=== PATIENT | female | born 1950 | race Caucasian/White ===

== ENCOUNTER 2018-03-17 11:20 | Inpatient (IN) | payer BC, OTHER ==
--- NOTE | 2018-03-17 11:56 | PDOC ---
History of Present Illness - General Chief Complaint: Nausea/Vomiting Stated Complaint: VOMITING Time Seen by Provider: 03/17/18 11:56 History Source: Patient Exam Limitations: No Limitations - History of Present Illness Initial Comments: Pt is a 68 yo F, with PMH of HLD and gastritis, who is presenting with complaints of epigastric pain, nausea, and vomiting since last night. Pt states around 8 pm last night, she noticed pain in her epigastric area. Around 10 pm, pt ate a piece of cheese (pt is lactose intolerant) and started having NBNB vomiting. Her pain continued throughout the day. The pain is sharp, non- radiating, and is worse when lying flat. Pt also went to a democrat earlier in the day yesterday and was eating chips and other dairy products. Pt denies any fevers/chills, headache, vision changes, syncope, chest pain, palpitations, SOB , urinary symptoms, diarrhea/constipation, or leg swelling. Last endoscopy done 2 months ago, normal. Did show breath test +lactose -celiac. GI: Dr. Phillips in [place] PCP: Dr. Zan Lind Social: Pt denies any cigarette, alcohol, or drug use. Pt denies any recent travel or sick contacts. Surgical: no relevant history. Family: no relevant history. 03/17/18 12:44 Past History - Travel Traveled outside of the country in the last 30 days: No Close contact w/someone who was outside of country & ill: No - Past Medical History Allergies/Adverse Reactions: Allergies Allergy/AdvReac Type Severity Reaction Status Date / Time No Known Allergies Allergy Verified 03/17/18 11:26 Home Medications: Ambulatory Orders Aspirin [ASA -] 81 mg PO DAILY 08/29/14 Rosuvastatin Calcium [Crestor] 20 mg PO HS 08/29/14 Esomeprazole Magnesium [Nexium 24Hr] 20 mg PO DAILY 03/17/18 Cancer: Yes (breast cancer (implants 2012)) COPD: No GI Disorders: Yes (acid reflux) Hypercholesterolemia: Yes - Surgical History Cholecystectomy: Yes - Suicide/Smoking/Psychosocial Hx Smoking History: Never smoked Have you smoked in the past 12 months: No Number of Cigarettes Smoked Daily: 0 If you are a former smoker, when did you quit?: 15yrs ago Hx Alcohol Use: No Drug/Substance Use Hx: No Substance Use Type: None Review of Systems - Review of Systems Able to Perform ROS?: Yes Is the patient limited Persian proficient: No Constitutional: Yes: Weight Stable. No: Chills, Diaphoresis, Fever, Loss of Appetite HEENTM: No: Recent change in vision, Nose Congestion, Throat Pain, Throat Swelling Respiratory: No: Cough, Orthopnea, Shortness of Breath, Wheezing Cardiac (ROS): No: Chest Pain, Edema, Irregular Heart Rate, Palpitations, Syncope, Chest Tightness ABD/GI: Yes: Nausea, Vomiting, Indigestion, Abdominal cramping. No: Blood Streaked Bowels, Constipated, Diarrhea, Poor Appetite, Poor Fluid Intake, Rectal Bleeding : No: Burning, Dysuria, Frequency, Hematuria, Pain, Urgency Musculoskeletal: No: Back Pain, Joint Pain Integumentary: No: Rash Neurological: No: Headache, Weakness Psychiatric: No: Sleep Pattern Change, Change in Appetite Endocrine: No: Increased Urine, Change in Weight Hematologic/Lymphatic: No: Anemia, Blood Clots, Easy Bleeding, Easy Bruising All Other Systems: Reviewed and Negative *Physical Exam - Vital Signs Last Vital Signs Temp Pulse Resp BP Pulse Ox 98.2 F 87 18 136/85 99 03/17/18 11:24 03/17/18 11:24 03/17/18 11:24 03/17/18 11:24 03/17/18 11:24 - Physical Exam General Appearance: Yes: Nourished, Appropriately Dressed, Mild Distress (pt vomiting on exam), Obese HEENT: positive: EOMI, BRENNAN, Normal ENT Inspection, Normal Voice, Pharynx Normal , Hearing Grossly Normal. negative: Scleral Icterus (R), Scleral Icterus (L), Pharyngeal Erythema, Tonsillar Exudate, Tonsillar Erythema, Rhinorrhea Neck: positive: Trachea midline, Normal Thyroid, Supple. negative: Tender, Rigid, Lymphadenopathy (R), Lymphadenopathy (L), Rigidity Respiratory/Chest: positive: Lungs Clear, Normal Breath Sounds. negative: Chest Tender, Respiratory Distress, Accessory Muscle Use, Wheezing Cardiovascular: positive: Regular Rhythm, Regular Rate, S1, S2. negative: Edema , JVD, Murmur Vascular Pulses: Carotid (R): 4+, Carotid (L): 4+ Gastrointestinal/Abdominal: positive: Normal Bowel Sounds, Tender (epigastric tenderness), Flat, Soft. negative: Organomegaly, Pulsatile Mass, Distended, Guarding, Rebound Rectal Exam: positive: deferred Lymphatic: negative: Adenopathy, Tenderness Musculoskeletal: positive: Normal Inspection. negative: CVA Tenderness Extremity: positive: Normal Capillary Refill, Normal Inspection, Normal Range of Motion, Pelvis Stable. negative: Tender, Pedal Edema Integumentary: positive: Normal Color, Dry, Warm. 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 negative: EOM Palsy, Facial Droop , Numbness, Sensory Deficit Moderate Sedation - Procedure Monitoring Vital Signs: Procedure Monitoring Vital Signs Temperature 98.2 F 03/17/18 11:24 Pulse Rate 87 03/17/18 11:24 Respiratory Rate 18 03/17/18 11:24 Blood Pressure 136/85 03/17/18 11:24 O2 Sat by Pulse Oximetry (%) 99 03/17/18 11:24 Heart Score/ECG Review - History History: Slightly suspicious - Electrocardiogram EKG: Non specific repolarization disturbance - Age Age: >/= 65 - Risk Factors Risk Factors Heart Score: Yes Hx Hypercholesterolemia Based on the list above the patient has:: 1-2 risk factors ED Treatment Course - LABORATORY CBC & Chemistry Diagram: 03/17/18 12:25 03/17/18 12:25 Medical Decision Making - Medical Decision Making Pt was seen at bedside, also will be seen by attending Dr. Hunter. Pt presenting with complaints of epigastric pain, nausea, and vomiting since last night. Pt states around 8 pm last night, she noticed pain in her epigastric area. Around 10 pm, pt ate a piece of cheese (pt is lactose intolerant) and started having NBNB vomiting. Her pain continued throughout the day. The pain is sharp, non- radiating, and is worse when lying flat. Pt also went to a democrat earlier in the day yesterday and was eating chips and other dairy products. Pt denies any fevers/chills, headache, vision changes, syncope, chest pain, palpitations, SOB , urinary symptoms, diarrhea/constipation, or leg swelling. Pt has history of gastritis. Will r/o ACS but this is likely an exacerbation of her gastritis. Likely dispo to home depending on pt improvement. Vitals stable, pt afebrile. PE showed epigastric tenderness to palpation, no rebound, no guarding, soft abdomen. No CVA tenderness. Considering gastritis exacerbation vs ulcer vs ACS vs pancreatitis vs cholecystitis. Ordered work-up including CBC, CMP, lipase, trop, ECG. Provided 1 L IV NS, viscous lidocaine, 4 mg IV zofran, 30 mg PO maalox, 20 mg IV pepcid for improvement of pain and nausea. Will continue to reassess pt and monitor for symptomatic improvement. 03/17/18 12:13 ECG: NSR, poor R wave progression V2-V3 (seen on last ECG), normal intervals; potentially new flipped T waves in V5-V6 Will obtain trop x2 considering new EKG changes. Labs sent, pending. 03/17/18 12:46 CBC and CMP generally WNL. Pending troponin. Will send pt for CT scan, as pt has non-reducible hernia in LUQ, with tenderness over that area. Pt states her pain is much improved. 03/17/18 13:47 First troponin negative, 2nd trop will be drawn at ~15:30. First troponin negative. Pt in CT scan. 03/17/18 15:[address] Second troponin sent to lab. Pt still complaining of mild abdominal pain/nausea -- providing 10 mg IV reglan , 25 mg IV benadryl, 1 g IV tylenol. Will reassess. Pending CT read. 03/17/18 15:49 Impression: Moderate dilatation of the proximal and mid small bowel loops measuring up to 3.4 cm with collapsed distal small bowel loops consistent with mid to distal small bowel obstruction, the point of transition is not clear on this exam. Moderate size left paramedian supraumbilical fat-containing hernia without evidence of incarceration or herniating bowel loops. 03/17/18 16:28 Dr. Hunter spoke with Dr. Concepcion (surgery) regarding pt. He will come to see the pt. NG tube requested, will place in ER. Paging hospitalist team for admission. 03/17/18 16:28 Second troponin negative. Moving pt to bed with suction for NG tube. 03/17/18 16:[address] Pt accepted for admission (Dr. Recinos). Pt resting comfortably. Pt receiving reglan and benadryl IV for nausea. Awaiting bed upstairs. 03/17/18 17:19 03/17/18 17:19 *DC/Admit/Observation/Transfer Diagnosis at time of Disposition: Small bowel obstruction - Discharge Dispostion Condition at time of disposition: Stable Decision to Admit order: Yes - Referrals Referrals: Zan Lind MD [Primary Care Provider] - - Patient Instructions - Post Discharge Activity
[2018-03-17] MEDS ORDERED: MAG HYDROX/AL HYDROX/SIMETH 30 ML UNIT-DOSE CUP PO ONE (12:11)
[2018-03-17] MEDS ORDERED: SODIUM CHLORIDE 1,000 ML IV STA (12:11)
[2018-03-17] MEDS ORDERED: ONDANSETRON 4 MG/2 ML VIAL IVPUSH ONE (12:11)
[2018-03-17] MEDS ORDERED: FAMOTIDINE 20 MG/50 ML IVPB 20 MG/50 ML MG IVPB ONE ×2 (12:11→12:37)
[2018-03-17] MEDS ORDERED: LIDOCAINE VISCOUS 2% ORAL/TOP 20 ML UNIT-DOSE CUP MM ONE (12:12)
[2018-03-17] MEDS ORDERED: ONDANSETRON 4 MG/2 ML VIAL ONE (12:37)
[2018-03-17] MEDS ORDERED: LIDOCAINE HCL 2% (20ML MULTI-DOSE VIAL) NR ONE (12:37)
[2018-03-17] MEDS ORDERED: MAG HYDROX/AL HYDROX/SIMETH 30 ML UNIT-DOSE CUP ONE (12:37)
[2018-03-17 12:57] LABS: BASO % 0.6 % (0-2.0); EOS % 0.3 % (0-4.5); HEMOGLOBIN 13.9 GM/dL (10.7-15.3); LYMPH % 13.9 % (8-40); MCHC 35.7 g/dl (32.0-36.0); MEAN CELL VOLUME 86.8 fl (80-96); MEAN PLT VOLUME 9.4 fl (7.5-11.1); MONO % 5.6 % (3.8-10.2); NEUT % 79.6 % (42.8-82.8); PLATELET COUNT 283 K/MM3 (134-434); RBC 4.49 M/mm3 (3.60-5.2); WHITE BLOOD COUNT 8.9 K/mm3 (4.0-10.0)
[2018-03-17 13:30] LABS: ALK PHOS 127 U/L (45-117); ANION GAP 8 MMOL/L (8-16); BILIRUBIN,TOTAL 0.5 mg/dL (0.2-1); BLOOD UREA NITROGEN 17 mg/dL (7-18); CALCIUM 9.5 mg/dL (8.5-10.1); CHLORIDE 103 mmol/L (98-107); CO2 28 mmol/L (21-32); CREATININE 0.6 mg/dL (0.55-1.3); GLUCOSE,RANDOM 110 mg/dL (74-106); POTASSIUM 3.9 mmol/L (3.5-5.1); SGOT/AST 27 U/L (15-37); SGPT/ALT 14 U/L (13-61); SODIUM 139 mmol/L (136-145); TOT PROT 7.8 g/dl (6.4-8.2)
--- NOTE | 2018-03-17 13:36 | PDOC ---
Attending Attestation - Resident Resident Name: Padma Joiner - ED Attending Attestation I have performed the following: I have examined & evaluated the patient, The case was reviewed & discussed with the resident, I agree w/resident's findings & plan, Exceptions are as noted - HPI HPI: 03/17/18 13:36 68 F with h/o gastritis, HLD, presenting to ED with vomiting and epigastric pain x 1 day. Pt states that she ate a piece of cheese yesterday that set off her pain. She endorses about 7 episodes of NBNB vomiting. Denies diarrhea. States that she had 2 small BMs over the past 24 hours. Pt notes that she has a small hernia in her L mid abdomen at the site of an old laparascopic incision. She states that today, the hernia has been bulging out, and she is unable to push it back in. Denies any abdominal distention. Denies constipation. - Physicial Exam PE: 03/17/18 13:41 "GENERAL: Awake, alert, and fully oriented, in no acute distress. HEAD: No signs of trauma EYES: PERRLA, EOMI, sclera anicteric, conjunctiva clear ENT: Auricles normal inspection, hearing grossly normal, nares patent, oropharynx clear without exudates. Moist mucosa NECK: Nontender, no stepoffs, Normal ROM, supple, no lymphadenopathy, JVD, or masses LUNGS: Breath sounds equal, clear to auscultation bilaterally. No wheezes, and no crackles HEART: Regular rate and rhythm, normal S1 and S2, no murmurs, rubs or gallops ABDOMEN: + epigastric and LUQ tenderness, + small hernia L mid abdomen with tenderness, normoactive bowel sounds. No guarding, no rebound. No masses EXTREMITIES: Normal range of motion, no edema. No clubbing or cyanosis. No cords, erythema, or tenderness NEUROLOGICAL: Cranial nerves II through XII intact. 5/5 strength and sensation in all extremities, Normal speech, normal gait, normal cerebellar function SKIN: Warm, Dry, normal turgor, no rashes or lesions noted. - Medical Decision Making 03/17/18 13:41 68 F with N+V x 7 episodes. Pt has palpable hernia on exam, will need to r/o incarceration/obstruction. - Labs, lipase - CTAP - IVF, GI cocktail 03/17/18 16:06 CT with SBO Surgery consulted 03/17/18 16:28 Dr. Concepcion aware of pt Will place NG tube Admit to hospitalist
[2018-03-17 14:05] LABS: LIPASE 88 U/L (73-393); MAGNESIUM 2.3 mg/dL (1.8-2.4)
[2018-03-17] MEDS ORDERED: ACETAMINOPHEN 325 MG TABLET (FP) PO ONE (15:32)
[2018-03-17] MEDS ORDERED: METOCLOPRAMIDE HCL INJECTION 10 MG/2 ML VIAL IVPUSH ONE (15:32)
--- NOTE | 2018-03-17 16:21 | EKG ---
Test Reason : Blood Pressure : / mmHG Vent. Rate : 070 BPM Atrial Rate : 070 BPM P-R Int : 140 ms QRS Dur : 084 ms QT Int : 408 ms P-R-T Axes : 061 -19 027 degrees QTc Int : 440 ms NORMAL SINUS RHYTHM MODERATE VOLTAGE CRITERIA FOR LVH, MAY BE NORMAL VARIANT ABNORMAL ECG WHEN COMPARED WITH ECG OF 19-APR-2016 15:31, INVERTED T WAVES HAVE REPLACED NONSPECIFIC T WAVE ABNORMALITY IN LATERAL LEADS Confirmed by MD GISSEL, MARLA ([id number]) on 03/17/2018 4:21:16 PM Referred By: Confirmed By:MARLA CHAUHAN MD
[2018-03-17] MEDS ORDERED: ACETAMINOPHEN INJECTION 100 ML IVPB ONE (16:35)
[2018-03-17] MEDS ORDERED: METOCLOPRAMIDE HCL INJECTION 10 MG/2 ML VIAL ONE (16:35)
[2018-03-17] MEDS ORDERED: ACETAMINOPHEN 1000 MG/100 ML VIAL (NON FORMULARY) IVPB ONE (16:43)
[2018-03-17] MEDS ORDERED: ONDANSETRON 4 MG/2 ML VIAL IVPUSH PRN (17:55)
--- NOTE | 2018-03-17 18:27 | HP ---
CHIEF COMPLAINT: nausea and vomiting PCP: Dr Lind HISTORY OF PRESENT ILLNESS: The patient is a 68 year old St Lucian speaking female with a PMH of gastritis, lactose intolerance, that presented to the hospital complaining of multiple episodes of NBNB vomiting since yesterday in the evening. It started at 8 PM and was associated with epigastric pain and chills. She states that her symptoms started after eating cheese. The patient continued to have symptoms throughout the day today and decided to come to ED. Last bowel movement was this morning, normal. 2 months ago she had EGD done that was positive for gastritis. The patient denies diarrhea, dysuria, fever, chest pain, SOB. ER course was notable for: (1)Pepcid, Zofran, NS (2)CT abdomen (3)NG, Surgery consultation PAST MEDICAL HISTORY: h/o of breast Ca BRCA+, s/p bilateral mastectomy PAST SURGICAL HISTORY: cholecystectomy, bilateral mastectomy 2011, partial left nephrostomy, meniscus repair Social History: Smoking:quit 30 years ago Alcohol:denies Drugs: denies with 3 children Family History: Mother: breast Ca 2 sisters due to brease Ca niece due to BRCA Father: due to natural causes Allergies No Known Allergies Allergy (Verified 03/17/18 11:26) HOME MEDICATIONS: Home Medications Medication Instructions Recorded Aspirin [ASA -] 81 mg PO DAILY 08/29/14 Zolpidem Tartrate 10 mg PO HS 03/17/18 REVIEW OF SYSTEMS CONSTITUTIONAL: chills, loss of appetite, Absent: fever, diaphoresis, generalized weakness, malaise, weight change HEENT: Absent: rhinorrhea, nasal congestion, throat pain, throat swelling CARDIOVASCULAR: Absent: chest pain, syncope, palpitations, irregular heart rate, lightheadedness , peripheral edema RESPIRATORY: Absent: cough, shortness of breath, dyspnea with exertion, orthopnea, wheezing GASTROINTESTINAL:abdominal pain, nausea, vomiting Absent: abdominal distension, diarrhea, constipation, melena, hematochezia GENITOURINARY: Absent: dysuria, frequency, urgency, hesitancy, hematuria, flank pain, genital pain SKIN: Absent: rash, ENDOCRINE: Absent: unexplained weight gain, unexplained weight loss NEUROLOGIC: Absent: headache, focal weakness or paresthesias, dizziness PSYCHIATRIC: Absent: anxiety, depression PHYSICAL EXAMINATION Vital Signs - 24 hr 03/17/18 11:24 Temperature 98.2 F Pulse Rate 87 Respiratory 18 Rate Blood Pressure 136/85 O2 Sat by Pulse 99 Oximetry (%) GENERAL: Awake, alert, and fully oriented, in no acute distress. HEAD: Normal with no signs of trauma. EYES: Extraocular movements intact, sclera anicteric, conjunctiva clear. EARS, NOSE, THROAT: Oropharynx clear without exudates. Moist mucous membranes, NG tube draining yellow fluid. NECK: Normal range of motion, supple without lymphadenopathy, JVD, or masses. LUNGS: Breath sounds equal, clear to auscultation bilaterally. No wheezes, and no crackles. No accessory muscle use. HEART: Regular rate and rhythm, normal S1 and S2 without murmur, rub or gallop. ABDOMEN: Soft, nontender, not distended, normoactive bowel sounds, no guarding, no rebound, no masses. MUSCULOSKELETAL: Normal range of motion at all joints. UPPER EXTREMITIES: No peripheral edema. LOWER EXTREMITIES: No peripheral edema. NEUROLOGICAL: Non focal. Normal speech. PSYCHIATRIC: Cooperative. Good eye contact. Appropriate mood and affect. SKIN: Warm, dry, normal turgor, no rashes, healed wounds s/p mastectomy b/l. Laboratory Results - last 24 hr 03/17/18 03/17/18 03/17/18 12:25 12:25 12:25 WBC 8.9 RBC 4.49 Hgb 13.9 Hct 39.0 MCV 86.8 MCH 31.0 MCHC 35.7 RDW 14.0 Plt Count 283 MPV 9.4 Absolute Neuts (auto) 7.1 Neutrophils % 79.6 Lymphocytes % 13.9 D Monocytes % 5.6 Eosinophils % 0.3 Basophils % 0.6 Nucleated RBC % 0 Sodium Cancelled 139 Potassium Cancelled 3.9 Chloride Cancelled 103 Carbon Dioxide Cancelled 28 Anion Gap Cancelled 8 BUN Cancelled 17 Creatinine Cancelled 0.6 Creat Clearance w eGFR Cancelled > 60 Random Glucose Cancelled 110 H Calcium Cancelled 9.5 Magnesium 2.3 Total Bilirubin Cancelled 0.5 AST Cancelled 27 ALT Cancelled 14 Alkaline Phosphatase Cancelled 127 H Troponin I < 0.02 Total Protein Cancelled 7.8 Albumin Cancelled 4.0 Lipase 88 03/17/18 16:00 WBC RBC Hgb Hct MCV MCH MCHC RDW Plt Count MPV Absolute Neuts (auto) Neutrophils % Lymphocytes % Monocytes % Eosinophils % Basophils % Nucleated RBC % Sodium Potassium Chloride Carbon Dioxide Anion Gap BUN Creatinine Creat Clearance w eGFR Random Glucose Calcium Magnesium Total Bilirubin AST ALT Alkaline Phosphatase Troponin I < 0.02 Total Protein Albumin Lipase ASSESSMENT/PLAN: The patient is a 68 year old St Lucian speaking female with a PMH of gastritis, lactose intolerance, that presented to the hospital complaining of multiple episodes of NBNB vomiting since yesterday in the evening. SBO: -the patient presented with N/V for 24 hrs with epigastric pain -CT positive for:moderate dilatation of the prox and mid small bowel loops up to 3.4 cm with collapsed distal small bowel loops consistant with mid to distal SBO -f/u surgery recommendations-Dr Concepcion -MIRI ordered for the morning -coags and type and screen ordered -cont hydration with d5NS -Zofran for nausea -Stacy Epigastric pain: -likely related to gastritis vs SBO but also r/o acs with nonspecific t wave inversions in lateral leads -will get EKG in AM -cardiology consulted -Protonix 40 mg IV daily F/E/N: ns/no changes/NPO now, NG tube, no PO meds Dispo: med surg MEDICATIONS CONFIRMED WITH PHARMACY. Problem List - Problem (1) Small bowel obstruction Code(s): K56.609 - UNSP INTESTNL OBST, UNSP TO PARTIAL VERSUS COMPLETE OBST (2) Chronic gastritis Code(s): K29.50 - UNSPECIFIED CHRONIC GASTRITIS WITHOUT BLEEDING Visit type - Emergency Visit Emergency Visit: Yes Care time: The patient presented to the Emergency Department on the above date and was hospitalized for further evaluation of their emergent condition. - New Patient This patient is new to me today: Yes Date on this admission: 03/17/18 - Critical Care Critical Care patient: No
[2018-03-17] MEDS ORDERED: DEXTROSE 5%-NORMAL SALINE 1,000 ML IV SCH (18:30)
[2018-03-17] MEDS ORDERED: SODIUM CHLORIDE 1,000 ML IV SCH (18:30)
--- NOTE | 2018-03-17 18:35 | CONSULT ---
Consult Consult Specialty:: General Surgery Reason for Consultation:: fat containing hernia and SBO on imaging - History of Present Illness Chief Complaint: muliple episodes of vomiting History of Present Illness: 68 yo female PMH obesity, gastritis, lactose intolerance, s/p cholecystectomy and hysterectomy that presented to the hospital complaining of multiple episodes of NBNB vomiting since yesterday in the evening. It started at 8 PM and was associated with epigastric pain and chills. She states that her symptoms started after eating cheese? The patient continued to have symptoms throughout the day today and decided to come to ED. Last bowel movement and flatus was this morning, normal. 2 months ago she had EGD done that was positive for gastritis. The patient denies diarrhea, dysuria, fever, chest pain , SOB. Imaging showed a ventral incisional hernia that is fat containing, there were also distended loops of small intestines. We were called to assess - History Source History Provided By: Patient, Medical Record Limitations to Obtaining History: No Limitations - Past Medical History Additional Medical History: obesity - Past Surgical History Past Surgical History: Yes: Cholecystectomy, Hysterectomy Additional Surgical History: partial nerprectomy? - Alcohol/Substance Use Hx Alcohol Use: No - Smoking History Smoking history: Never smoked Have you smoked in the past 12 months: No Aproximately how many cigarettes per day: 0 If you are a former smoker, when did you quit?: 15yrs ago Home Medications - Allergies Allergies/Adverse Reactions: Allergies Allergy/AdvReac Type Severity Reaction Status Date / Time No Known Allergies Allergy Verified 03/17/18 11:26 - Home Medications Home Medications: Ambulatory Orders Aspirin [ASA -] 81 mg PO DAILY 08/29/14 Zolpidem Tartrate 10 mg PO HS 03/17/18 Review of Systems - Review of Systems Constitutional: denies: Chills, Fever Eyes: denies: Blurred Vision, Recent Change in Vision HENT: denies: Difficult Swallowing, Throat Pain Neck: denies: Stiffness, Swollen Glands Cardiovascular: denies: Chest Pain, Palpitations Respiratory: denies: Cough, SOB Gastrointestinal: reports: Nausea, Vomiting. denies: Abdominal Pain, Constipation, Diarrhea Genitourinary: denies: Discharge, Dysuria, Flank Pain, Frequency Breasts: reports: No Symptoms Reported. denies: Pain Musculoskeletal: denies: Decreased ROM, Muscle Pain, Muscle Weakness Integumentary: denies: Bruising, Erythema, Lesions Neurological: denies: Seizure, Syncope, Tremors Endocrine: denies: Unexplained Weight Gain, Unexplained Weight Loss Hematology/Lymphatic: denies: Easily Bruised, Excessive Bleeding Psychiatric: denies: Anxiety, Depression Physical Exam Vital Signs: Vital Signs Temperature 98.2 F 03/17/18 11:24 Pulse Rate 87 03/17/18 11:24 Respiratory Rate 18 03/17/18 11:24 Blood Pressure 136/85 03/17/18 11:24 O2 Sat by Pulse Oximetry (%) 99 03/17/18 11:24 Constitutional: Yes: Well Nourished, No Distress, Calm Eyes: Yes: Conjunctiva Clear, EOM Intact HENT: Yes: Atraumatic, Normocephalic Neck: Yes: Supple, Trachea Midline Cardiovascular: Yes: Regular Rate and Rhythm, S1, S2 Respiratory: Yes: Regular, CTA Bilaterally Gastrointestinal: Yes: Normal Bowel Sounds, Soft, Abdomen, Obese, Hernia ( ventral incisonal hernia). No: Ascites, Distention, Hemorrhoids, Hyperactive Bowel Sounds, Hypoactive Bowel Sounds, Tenderness, Tenderness, Epigastrium, Tenderness, Rebound ...Rectal Exam: Yes: Deferred Renal/: No: CVA Tenderness - Left, CVA Tenderness - Right Breast(s): No: Discharge from Nipple, Nipple Inversion Musculoskeletal: No: Muscle Pain, Muscle Weakness Extremities: No: Cool, Cyanosis Edema: No Peripheral Pulses WNL: Yes Integumentary: No: Pressure Ulcer, Rash Neurological: Yes: Alert, Oriented Psychiatric: Yes: Alert, Oriented Labs: CBC, BMP 03/17/18 12:25 03/17/18 12:25 Imaging - Results Chest X-ray: Image Reviewed X-ray: Pending Cat Scan: Report Reviewed, Image Reviewed (fat containing hernia, Sbo pattern distended small bowel no identified transition point) EKG: Report Reviewed, Image Reviewed Problem List - Problems (1) Small bowel obstruction Assessment/Plan: 68yo female with N&V, SBO pattern but no significant abdominal pain, findings on imaging not likely related to clinical presentation. No indication for acute surgical intervention given history of abdominal and pelvic surgeries. discussed with patients family and patient. Medical management NPO and IVF hydration NGT decompression antiemetic therapy repeat abdominal xray dietary counseling will follow Thank you for the opportunity to participate in the care of this patient. Code(s): K56.609 - UNSP INTESTNL OBST, UNSP TO PARTIAL VERSUS COMPLETE OBST (2) Obesity (BMI 30.0-34.9) Code(s): E66.9 - OBESITY, UNSPECIFIED (3) Incarcerated ventral hernia Code(s): K43.6 - OTHER AND UNSP VENTRAL HERNIA WITH OBSTRUCTION, W/O GANGRENE (4) Vomiting Code(s): R11.10 - VOMITING, UNSPECIFIED Qualifiers: Vomiting type: cyclical vomiting Vomiting Intractability: non-intractable Nausea presence: with nausea Qualified Code(s): G43.A0 - Cyclical vomiting, not intractable (5) Chronic gastritis Code(s): K29.50 - UNSPECIFIED CHRONIC GASTRITIS WITHOUT BLEEDING Qualifiers: Gastritis type: superficial Gastritis bleeding: without bleeding Qualified Code(s): K29.30 - Chronic superficial gastritis without bleeding
[2018-03-17] MEDS: DEXTROSE 5%-LACTATED RINGERS 1,000 ML IV SCH (21:02)
[2018-03-17] MEDS ORDERED: MELATONIN 5 MG TABLETS PO ONE (21:05)
[2018-03-17] MEDS ORDERED: HEPARIN NA (PORCINE) 5,000 UNITS/ML 1ML VIAL ONE (21:52)
[2018-03-17] MEDS: HEPARIN NA (PORCINE) 5,000 UNITS/ML 1ML VIAL SQ SCH (21:57)
[2018-03-17] MEDS ORDERED: morphine CARPU-JECT 4 MG/1 ML DISP.SYRIN IVPUSH ONE (22:35)
[2018-03-17] MEDS ORDERED: morphine SULFATE 4 MG/ML VIAL ONE (22:36)
[2018-03-17] MEDS ORDERED: LORazepam 2 MG/ML SDV VIAL IVPUSH PRN (23:54)
--- NOTE | 2018-03-17 23:54 | PN ---
Progress Note (short form) - Note Progress Note: pt is known to me from office requested my opinion re: her admission and clinical presentation discussed briefly earlier with dr ruben reyes and surgical consult appreciated she is anxious and apprehensive about being in the hosp she is on ambien outpatient now npo will rx one dose of ativan tonight
[2018-03-18] MEDS: DEXTROSE 5%-LACTATED RINGERS 1,000 ML IV SCH ×3 (00:54→21:13)
[2018-03-18] MEDS ORDERED: ACETAMINOPHEN 1000 MG/100 ML VIAL (NON FORMULARY) IVPB ONE (03:52)
[2018-03-18 07:24] LABS: INR 1.02 (0.83-1.09)
[2018-03-18 07:27] LABS: ACTIVATED PTT 29.8 SECONDS (25.2-36.5)
[2018-03-18 07:46] LABS: ALBUMIN 3.2 g/dl (3.4-5.0); ALK PHOS 103 U/L (45-117); ANION GAP 7 MMOL/L (8-16); BILIRUBIN,TOTAL 0.5 mg/dL (0.2-1); BLOOD UREA NITROGEN 17 mg/dL (7-18); CALCIUM 8.3 mg/dL (8.5-10.1); CHLORIDE 106 mmol/L (98-107); CO2 29 mmol/L (21-32); CREATININE 0.5 mg/dL (0.55-1.3); GLUCOSE,RANDOM 120 mg/dL (74-106); MAGNESIUM 2.2 mg/dL (1.8-2.4); PHOSPHOROUS 3.6 mg/dL (2.5-4.9); POTASSIUM 3.6 mmol/L (3.5-5.1); SGOT/AST 25 U/L (15-37); SGPT/ALT 14 U/L (13-61); SODIUM 142 mmol/L (136-145); TOT PROT 6.4 g/dl (6.4-8.2)
[2018-03-18 08:14] LABS: BASO % 0.3 % (0-2.0); EOS % 0.5 % (0-4.5); HEMATOCRIT 35.2 % (32.4-45.2); HEMOGLOBIN 12.6 GM/dL (10.7-15.3); LYMPH % 17.2 % (8-40); MCHC 35.8 g/dl (32.0-36.0); MEAN CELL VOLUME 86.7 fl (80-96); MEAN PLT VOLUME 9.3 fl (7.5-11.1); MONO % 8.5 % (3.8-10.2); NEUT % 73.5 % (42.8-82.8); PLATELET COUNT 250 K/MM3 (134-434); RBC 4.06 M/mm3 (3.60-5.2); RDW 14.5 % (11.6-15.6); WHITE BLOOD COUNT 5.4 K/mm3 (4.0-10.0)
--- NOTE | 2018-03-18 08:50 | PN ---
Progress Note, Physician History of Present Illness: 68 yo female PMH obesity, gastritis, lactose intolerance, s/p cholecystectomy and hysterectomy that presented to the hospital complaining of multiple episodes of NBNB vomiting since yesterday in the evening. She has been stable overnight and has - Current Medication List Current Medications: Active Medications Heparin Sodium (Porcine) (Heparin -) 5,000 unit SQ BID [facility] Last Admin: 03/17/18 21:57 Dose: 5,000 unit Dextrose/Lactated Ringer's (D5-Lr -) 1,000 mls @ 83 mls/hr IV ASDIR [facility] Last Admin: 03/18/18 00:54 Dose: 83 mls/hr Lorazepam (Ativan Injection -) 0.5 mg IVPUSH HS PRN PRN Reason: ANXIETY Last Admin: 03/18/18 00:54 Dose: 0.5 mg Ondansetron HCl (Zofran Injection) 4 mg IVPUSH Q4H PRN PRN Reason: NAUSEA AND/OR VOMITING Last Admin: 03/18/18 03:11 Dose: 4 mg Pantoprazole Sodium (Protonix Iv) 40 mg IVPUSH DAILY [facility] - Objective Vital Signs: Vital Signs Temperature 98.7 F 03/18/18 05:36 Pulse Rate 76 03/18/18 05:36 Respiratory Rate 20 03/18/18 05:36 Blood Pressure 127/73 03/18/18 05:36 O2 Sat by Pulse Oximetry (%) 96 03/17/18 21:10 Vital Signs Period Temp Pulse Resp BP Sys/Hogan Pulse Ox Last 24 Hr 98.0 F-99.6 F 76-102 18-20 115-141/73-82 95-96 Constitutional: Yes: Well Nourished, No Distress, Calm Eyes: Yes: Conjunctiva Clear, EOM Intact HENT: Yes: Atraumatic, Normocephalic Neck: Yes: Supple, Trachea Midline Cardiovascular: Yes: Regular Rate and Rhythm, S1, S2 Respiratory: Yes: Regular, CTA Bilaterally Gastrointestinal: Yes: Normal Bowel Sounds, Soft, Hernia (left sided), Vomiting (NGT 400 + 200.). No: Tenderness, Tenderness, Epigastrium, Tenderness, Rebound Genitourinary: No: CVA Tenderness - Left, CVA Tenderness - Right Musculoskeletal: No: Muscle Pain, Muscle Weakness Extremities: No: Cool, Cyanosis Edema: No Peripheral Pulses WNL: Yes Peripheral Pulses: Left Radial: 2+, Right Radial: 2+, Left Doralis Pedis: 2+, Right Dorsalis Pedis: 2+, Left Femoral: 2+, Right Femoral: 2+ Integumentary: Yes: Jaundice Neurological: Yes: Alert, Oriented Psychiatric: Yes: Alert, Oriented Labs: CBC, BMP 03/18/18 06:30 03/18/18 06:30 INR, PTT INR 1.02 (0.83-1.09) 03/18/18 06:30 - ....Imaging X-ray: Report Reviewed (Resolution of SBO pattern.), Image Reviewed Problem List - Problems (1) Small bowel obstruction Assessment/Plan: 68yo female with N&V, SBO pattern but no significant abdominal pain, findings on imaging not likely related to clinical presentation. No indication for acute surgical intervention given history of abdominal and pelvic surgeries. discussed with patients family and patient. xray shows resolution of SBO. NGT removed, clears in BM or flatus. Medical management clear liquid diet IVF hydration NGT discontinued antiemetic therapy scheduled, no reglan dietary counseling will follow Code(s): K56.609 - UNSP INTESTNL OBST, UNSP TO PARTIAL VERSUS COMPLETE OBST (2) Obesity (BMI 30.0-34.9) Code(s): E66.9 - OBESITY, UNSPECIFIED (3) Incarcerated ventral hernia Code(s): K43.6 - OTHER AND UNSP VENTRAL HERNIA WITH OBSTRUCTION, W/O GANGRENE (4) Vomiting Code(s): R11.10 - VOMITING, UNSPECIFIED Qualifiers: Vomiting type: cyclical vomiting Vomiting Intractability: non-intractable Nausea presence: with nausea Qualified Code(s): G43.A0 - Cyclical vomiting, not intractable (5) Chronic gastritis Code(s): K29.50 - UNSPECIFIED CHRONIC GASTRITIS WITHOUT BLEEDING Qualifiers: Gastritis type: superficial Gastritis bleeding: without bleeding Qualified Code(s): K29.30 - Chronic superficial gastritis without bleeding
[2018-03-18] MEDS: PANTOPRAZOLE SODIUM 40 MG VIAL IVPUSH SCH (09:44)
[2018-03-18] MEDS: ONDANSETRON 4 MG/2 ML VIAL IVPB SCH ×2 (14:17→17:22)
--- NOTE | 2018-03-18 15:37 | CON.CARD ---
Consult Consult Specialty:: Cardiology Referred by:: Lizet Reason for Consultation:: abnormal ECG - History of Present Illness Chief Complaint: abd pain History of Present Illness: 68 year old French speaking female with a PMH of gastritis, lactose intolerance , that presented to the hospital complaining of multiple episodes of NBNB vomiting thought to have a possible SBO, managed conservatively, now tolerating PO. No chest pain, sob, orthopnea, pnd or edema. Sees Dr Joe Shoemaker in the [place], normal stress nuclear 3 months ago. Exercise tolerance is good. ECG showed minor t wave changes in the lateral leads with artifact. - History Source History Provided By: Patient, Family Member - Past Medical History Additional Medical History: obesity - Past Surgical History Past Surgical History: Yes: Cholecystectomy, Hysterectomy Additional Surgical History: partial nerprectomy? - Alcohol/Substance Use Hx Alcohol Use: No - Smoking History Smoking history: Never smoked Have you smoked in the past 12 months: No Aproximately how many cigarettes per day: 0 If you are a former smoker, when did you quit?: 15yrs ago Home Medications - Allergies Allergies/Adverse Reactions: Allergies Allergy/AdvReac Type Severity Reaction Status Date / Time No Known Allergies Allergy Verified 03/17/18 11:26 - Home Medications Home Medications: Ambulatory Orders Aspirin [ASA -] 325 mg PO DAILY 08/29/14 Zolpidem Tartrate 10 mg PO HS 03/17/18 Vital Signs: Vital Signs Temperature 98.8 F 03/18/18 13:35 Pulse Rate 96 H 03/18/18 13:35 Respiratory Rate 18 03/18/18 13:35 Blood Pressure 124/74 03/18/18 13:35 O2 Sat by Pulse Oximetry (%) 95 03/18/18 09:00 Constitutional: Yes: No Distress, Calm Eyes: Yes: Conjunctiva Clear, EOM Intact HENT: Yes: Normocephalic Neck: Yes: Trachea Midline Respiratory: Yes: CTA Bilaterally Gastrointestinal: Yes: Normal Bowel Sounds, Soft Cardiovascular: Yes: Regular Rate and Rhythm JVD: No Carotid Bruit: No PMI: Non-Displaced Heart Sounds: Yes: S1, S2 Extremities: Yes: WNL Edema: No Peripheral Pulses WNL: No - Other Data Labs, Other Data: CBC, BMP 03/18/18 06:30 03/18/18 06:30 INR, PTT INR 1.02 (0.83-1.09) 03/18/18 06:30 Troponin, BNP 03/17/18 16:00 Troponin I < 0.02 Troponin, BNP 03/17/18 16:00 Troponin I < 0.02 Imaging - Results Chest X-ray: Report Reviewed X-ray: Report Reviewed EKG: Report Reviewed (nsr nssttw changes.) Assessment/Plan 68 year old French speaking female with a PMH of gastritis, lactose intolerance , that presented to the hospital complaining of multiple episodes of NBNB vomiting thought to have a possible SBO, managed conservatively, now tolerating PO. No chest pain, sob, orthopnea, pnd or edema. Sees Dr Joe Shoemaker in the [place], normal stress nuclear 3 months ago. Exercise tolerance is good. ECG showed minor t wave changes in the lateral leads with artifact. -There are no cardiac contraindications to surgery and/or GI workup if needed. -No evidence of symptomatic CAD. Will see PRN.
--- NOTE | 2018-03-18 17:48 | PN ---
Physical Exam: SUBJECTIVE: Patient seen and examined. Still complaining of vomiting x1 episode last night, +nausea. +epigastric pain. OBJECTIVE: Vital Signs Temperature 99.4 F 03/18/18 17:31 Pulse Rate 92 H 03/18/18 17:31 Respiratory Rate 18 03/18/18 17:31 Blood Pressure 129/78 03/18/18 17:31 O2 Sat by Pulse Oximetry (%) 95 03/18/18 09:00 GENERAL: AAOx3. HEENT: AT/NC. EOMI. BRENNAN. Moist mucous membranes, NG tube draining yellow fluid. NECK: Normal range of motion, supple without lymphadenopathy, JVD, or masses. LUNGS: Breath sounds equal, clear to auscultation bilaterally. No wheezes, and no crackles. No accessory muscle use. HEART: RRR. Normal S1, S2. No murmurs noted. ABDOMEN: Soft NT/ND. No masses noted. MUSCULOSKELETAL: Normal range of motion at all joints. UPPER EXTREMITIES: No peripheral edema. LOWER EXTREMITIES: No peripheral edema. NEUROLOGICAL: Non focal. Normal speech. PSYCHIATRIC: Cooperative. Good eye contact. Appropriate mood and affect. SKIN: Warm, dry, normal turgor, no rashes, healed wounds s/p mastectomy b/l. CBCD WBC 5.4 K/mm3 (4.0-10.0) 03/18/18 06:30 RBC 4.06 M/mm3 (3.60-5.2) 03/18/18 06:30 Hgb 12.6 GM/dL (10.7-15.3) 03/18/18 06:30 Hct 35.2 % (32.4-45.2) 03/18/18 06:30 MCV 86.7 fl (80-96) 03/18/18 06:30 MCHC 35.8 g/dl (32.0-36.0) 03/18/18 06:30 RDW 14.5 % (11.6-15.6) 03/18/18 06:30 Plt Count 250 K/MM3 (134-434) 03/18/18 06:30 MPV 9.3 fl (7.5-11.1) 03/18/18 06:30 CMP Sodium 142 mmol/L (136-145) 03/18/18 06:30 Potassium 3.6 mmol/L (3.5-5.1) 03/18/18 06:30 Chloride 106 mmol/L (98-107) 03/18/18 06:30 Carbon Dioxide 29 mmol/L (21-32) 03/18/18 06:30 Anion Gap 7 MMOL/L (8-16) L 03/18/18 06:30 BUN 17 mg/dL (7-18) 03/18/18 06:30 Creatinine 0.5 mg/dL (0.55-1.3) L 03/18/18 06:30 Creat Clearance w eGFR > 60 (>60) 03/18/18 06:30 Calcium 8.3 mg/dL (8.5-10.1) L 03/18/18 06:30 Total Bilirubin 0.5 mg/dL (0.2-1) 03/18/18 06:30 AST 25 U/L (15-37) 03/18/18 06:30 ALT 14 U/L (13-61) 03/18/18 06:30 Alkaline Phosphatase 103 U/L (45-117) 03/18/18 06:30 Total Protein 6.4 g/dl (6.4-8.2) 03/18/18 06:30 Albumin 3.2 g/dl (3.4-5.0) L 03/18/18 06:30 Active Medications Heparin Sodium (Porcine) (Heparin -) 5,000 unit SQ BID [facility] Last Admin: 03/17/18 21:57 Dose: 5,000 unit Dextrose/Lactated Ringer's (D5-Lr -) 1,000 mls @ 83 mls/hr IV ASDIR [facility] Last Admin: 03/18/18 14:16 Dose: 83 mls/hr Lorazepam (Ativan Injection -) 0.5 mg IVPUSH HS PRN PRN Reason: ANXIETY Last Admin: 03/18/18 00:54 Dose: 0.5 mg Ondansetron HCl (Zofran Injection) 4 mg IVPB Q8H-IV [facility] Last Admin: 03/18/18 17:22 Dose: Not Given Pantoprazole Sodium (Protonix Iv) 40 mg IVPUSH DAILY [facility] Last Admin: 03/18/18 09:44 Dose: 40 mg CONSULT: GI- Dr. Concepcion Cardio- Dr. Villarreal IMAGING: * Abd xray (03/18/18): Slight decrease in abd distension. Still no evidence of small bowel or partial small bowel obstruction. * CTAP: Mod dilatation of prox and mid small bowel loops measuring up to 3.4 cm. Supraumbilical fat containing hernia w/o evidence of incarceration or herniating bowel loops. ASSESSMENT/PLAN: 68 Turkish speaking female with a PMH of gastritis, lactose intolerance, that presented to the hospital complaining of multiple episodes of NBNB vomiting since yesterday in the evening. #SBO; Resolved. -Repeat Abd xray noted above, no evidence of small bowel or partial SBO. -Per surg, no indication for acute surgical intervention given history of abdominal and pelvic surgeries. D/c NGT. -Start CLD, IVF hydration -Zofran 4 mg IVPB Q8H for nausea #Epigastric pain; likely related to gastritis vs SBO but also r/o acs with nonspecific t wave inversions in lateral leads -repeat Abd xray noted resolving SBO -Cardiology consulted; recs appreciated. -Protonix 40 mg IV daily #F/E/N: ns/no changes/CLD Dispo: med surg MEDICATIONS CONFIRMED WITH PHARMACY. Visit type - Emergency Visit Emergency Visit: Yes ED Registration Date: 03/17/18 Care time: The patient presented to the Emergency Department on the above date and was hospitalized for further evaluation of their emergent condition. - New Patient This patient is new to me today: Yes Date on this admission: 03/18/18 - Critical Care Critical Care patient: No
--- NOTE | 2018-03-18 19:19 | PN ---
Teaching Attending Note Name of Resident: Shania Rocha ATTENDING PHYSICIAN STATEMENT I saw and evaluated the patient. I reviewed the resident's note and discussed the case with the resident. I agree with the resident's findings and plan as documented. SUBJECTIVE: The patient is a 68 year old Indonesian speaking female with a PMH of gastritis, lactose intolerance, that presented to the hospital complaining of multiple episodes of nausea and vomiting since yesterday in the evening. No fever or chills. OBJECTIVE: 03/17/18 11:24 Temperature 98.2 F Pulse Rate 87 Respiratory 18 Rate Blood Pressure 136/85 O2 Sat by Pulse 99 Oximetry (%) GENERAL: Awake, alert, and fully oriented, in no acute distress. HEAD: Normal with no signs of trauma. EYES: Extraocular movements intact, sclera anicteric, conjunctiva clear. EARS, NOSE, THROAT: Oropharynx clear without exudates. Moist mucous membranes, NG tube draining yellow fluid. NECK: Normal range of motion, supple without lymphadenopathy, JVD, or masses. LUNGS: Breath sounds equal, clear to auscultation bilaterally. No wheezes, and no crackles. No accessory muscle use. HEART: Regular rate and rhythm, normal S1 and S2 without murmur, rub or gallop. ABDOMEN: Soft, nontender, not distended, normoactive bowel sounds, no guarding, no rebound, no masses. MUSCULOSKELETAL: Normal range of motion at all joints. EXTREMITIES: No peripheral edema. NEUROLOGICAL: Non focal. Normal speech. PSYCHIATRIC: Cooperative. Good eye contact. Appropriate mood and affect. SKIN: Warm, dry, normal turgor, no rashes, healed wounds s/p mastectomy b/l. Home Medications Medication Instructions Recorded Aspirin [ASA -] 325 mg PO DAILY 08/29/14 Zolpidem Tartrate 10 mg PO HS 03/17/18 Laboratory Results - last 24 hr 03/17/18 03/17/18 03/17/18 12:25 12:25 12:25 WBC 8.9 RBC 4.49 Hgb 13.9 Hct 39.0 MCV 86.8 MCH 31.0 MCHC 35.7 RDW 14.0 Plt Count 283 MPV 9.4 Absolute Neuts (auto) 7.1 Neutrophils % 79.6 Lymphocytes % 13.9 D Monocytes % 5.6 Eosinophils % 0.3 Basophils % 0.6 Nucleated RBC % 0 Sodium Cancelled 139 Potassium Cancelled 3.9 Chloride Cancelled 103 Carbon Dioxide Cancelled 28 Anion Gap Cancelled 8 BUN Cancelled 17 Creatinine Cancelled 0.6 Creat Clearance w eGFR Cancelled > 60 Random Glucose Cancelled 110 H Calcium Cancelled 9.5 Magnesium 2.3 Total Bilirubin Cancelled 0.5 AST Cancelled 27 ALT Cancelled 14 Alkaline Phosphatase Cancelled 127 H Troponin I < 0.02 Total Protein Cancelled 7.8 Albumin Cancelled 4.0 Lipase 88 03/17/18 16:00 WBC RBC Hgb Hct MCV MCH MCHC RDW Plt Count MPV Absolute Neuts (auto) Neutrophils % Lymphocytes % Monocytes % Eosinophils % Basophils % Nucleated RBC % Sodium Potassium Chloride Carbon Dioxide Anion Gap BUN Creatinine Creat Clearance w eGFR Random Glucose Calcium Magnesium Total Bilirubin AST ALT Alkaline Phosphatase Troponin I < 0.02 Total Protein Albumin Lipase ASSESSMENT AND PLAN: The patient is a 68 year old Indonesian speaking female with a PMHx of gastritis, lactose intolerance, that presented to the hospital complaining of multiple episodes of vomiting since yesterday. was found to have SBO. # SBO:NG tube for low intermidiate suction . surgical consult dr dewey NPO now, NG tube, no PO meds Dispo: med surg DVt px:
--- NOTE | 2018-03-18 19:46 | PN ---
Teaching Attending Note Name of Resident: Jennifer Marshall ATTENDING PHYSICIAN STATEMENT I saw and evaluated the patient. I reviewed the resident's note and discussed the case with the resident. I agree with the resident's findings and plan as documented. SUBJECTIVE: Patient is better on continues ng tube OBJECTIVE: Vital Signs Temperature 99.4 F 03/18/18 17:31 Pulse Rate 92 H 03/18/18 17:31 Respiratory Rate 18 03/18/18 17:31 Blood Pressure 129/78 03/18/18 17:31 O2 Sat by Pulse Oximetry (%) 95 03/18/18 09:00 GENERAL: Awake, alert, and fully oriented, in no acute distress. HEAD: Normal with no signs of trauma. EYES: Extraocular movements intact, sclera anicteric, conjunctiva clear. EARS, NOSE, THROAT: Oropharynx clear without exudates. Moist mucous membranes, NG tube draining yellow fluid, continues NECK: Normal range of motion, supple without lymphadenopathy, JVD, or masses. LUNGS: Breath sounds equal, clear to auscultation bilaterally. No wheezes, and no crackles. No accessory muscle use. HEART: Regular rate and rhythm, normal S1 and S2 without murmur, rub or gallop. ABDOMEN: Soft, nontender, not distended, normoactive bowel sounds, no guarding, no rebound, no masses. EXTREMITIES: No peripheral edema. NEUROLOGICAL: Non focal. Normal speech. PSYCHIATRIC: Cooperative. Good eye contact. Appropriate mood and affect. SKIN: Warm, dry, normal turgor, no rashes, healed wounds s/p mastectomy b/l. CBCD WBC 5.4 K/mm3 (4.0-10.0) 03/18/18 06:30 RBC 4.06 M/mm3 (3.60-5.2) 03/18/18 06:30 Hgb 12.6 GM/dL (10.7-15.3) 03/18/18 06:30 Hct 35.2 % (32.4-45.2) 03/18/18 06:30 MCV 86.7 fl (80-96) 03/18/18 06:30 MCHC 35.8 g/dl (32.0-36.0) 03/18/18 06:30 RDW 14.5 % (11.6-15.6) 03/18/18 06:30 Plt Count 250 K/MM3 (134-434) 03/18/18 06:30 MPV 9.3 fl (7.5-11.1) 03/18/18 06:30 CMP Sodium 142 mmol/L (136-145) 03/18/18 06:30 Potassium 3.6 mmol/L (3.5-5.1) 03/18/18 06:30 Chloride 106 mmol/L (98-107) 03/18/18 06:30 Carbon Dioxide 29 mmol/L (21-32) 03/18/18 06:30 Anion Gap 7 MMOL/L (8-16) L 03/18/18 06:30 BUN 17 mg/dL (7-18) 03/18/18 06:30 Creatinine 0.5 mg/dL (0.55-1.3) L 03/18/18 06:30 Creat Clearance w eGFR > 60 (>60) 03/18/18 06:30 Random Glucose 120 mg/dL (74-106) H 03/18/18 06:30 Calcium 8.3 mg/dL (8.5-10.1) L 03/18/18 06:30 Total Bilirubin 0.5 mg/dL (0.2-1) 03/18/18 06:30 AST 25 U/L (15-37) 03/18/18 06:30 ALT 14 U/L (13-61) 03/18/18 06:30 Alkaline Phosphatase 103 U/L (45-117) 03/18/18 06:30 Total Protein 6.4 g/dl (6.4-8.2) 03/18/18 06:30 Albumin 3.2 g/dl (3.4-5.0) L 03/18/18 06:30 CARDIAC ENZYMES Troponin I < 0.02 ng/ml (0.00-0.05) 03/17/18 16:00 Current Medications Generic Name Dose Route Start Last Admin Trade Name Freq PRN Reason Stop Dose Admin Heparin Sodium (Porcine) 5,000 unit 03/17/18 22:00 03/17/18 21:57 Heparin - SQ 5,000 unit BID [facility]ESS[facility] Administration Dextrose/Lactated Ringer's 1,000 mls @ 83 mls/hr 03/17/18 21:00 03/18/18 14: 16 D5-Lr - IV 83 mls/hr ASDIR [facility] Administration Lorazepam 0.5 mg 03/17/18 23:54 03/18/18 00:54 Ativan Injection - IVPUSH 0.5 mg HS PRN Administration ANXIETY Ondansetron HCl 4 mg 03/18/18 13:30 03/18/18 17:22 Zofran Injection IVPB Not Given Q8H-IV [facility] Pantoprazole Sodium 40 mg 03/18/18 10:00 03/18/18 09:44 Protonix Iv IVPUSH 40 mg DAILY [facility]ESS[facility] Administration Home Medications Medication Instructions Recorded Aspirin [ASA -] 325 mg PO DAILY 08/29/14 Zolpidem Tartrate 10 mg PO HS 03/17/18 ASSESSMENT AND PLAN: The patient is a 68 year old Mauritanian speaking female with a PMHx of gastritis, lactose intolerance, that presented to the hospital complaining of multiple episodes of vomiting since yesterday. was found to have SBO. # SBO: continue NG tube for low intermediate suction . surgical consult dr dewey , NPO now, NG tube, no PO meds Dispo: med surg DVt px: heparin
[2018-03-18] MEDS: HEPARIN NA (PORCINE) 5,000 UNITS/ML 1ML VIAL SQ SCH (21:13)
[2018-03-19] MEDS: ONDANSETRON 4 MG/2 ML VIAL IVPB SCH ×3 (02:02→17:09)
[2018-03-19 07:41] LABS: ANION GAP 6 MMOL/L (8-16); BLOOD UREA NITROGEN 19 mg/dL (7-18); CALCIUM 7.9 mg/dL (8.5-10.1); CHLORIDE 108 mmol/L (98-107); CO2 29 mmol/L (21-32); CREATININE 0.6 mg/dL (0.55-1.3); GLUCOSE,RANDOM 101 mg/dL (74-106); POTASSIUM 3.6 mmol/L (3.5-5.1); SODIUM 144 mmol/L (136-145)
[2018-03-19] MEDS: HEPARIN NA (PORCINE) 5,000 UNITS/ML 1ML VIAL SQ SCH ×2 (09:21→22:14)
[2018-03-19] MEDS: PANTOPRAZOLE SODIUM 40 MG VIAL IVPUSH SCH (09:21)
[2018-03-19 15:07] VITALS: BMI 31.8
--- NOTE | 2018-03-19 16:49 | PN ---
Physical Exam: SUBJECTIVE: Patient seen and examined at bedside. No acute events overnight. + Flatus. Tolerating CLD. OBJECTIVE: Vital Signs Temperature 98.5 F 03/19/18 14:39 Pulse Rate 78 03/19/18 14:39 Respiratory Rate 18 03/19/18 14:39 Blood Pressure 131/86 03/19/18 14:39 O2 Sat by Pulse Oximetry (%) 90 L 03/18/18 21:00 GENERAL: AAOx3. HEENT: AT/NC. EOMI. BRENNAN. Moist mucous membranes, NG tube draining yellow fluid. NECK: Normal range of motion, supple without lymphadenopathy, JVD, or masses. LUNGS: Breath sounds equal, clear to auscultation bilaterally. No wheezes, and no crackles. No accessory muscle use. HEART: RRR. Normal S1, S2. No murmurs noted. ABDOMEN: Soft NT/ND. No masses noted. MUSCULOSKELETAL: Normal range of motion at all joints. UPPER EXTREMITIES: No peripheral edema. LOWER EXTREMITIES: No peripheral edema. NEUROLOGICAL: Non focal. Normal speech. PSYCHIATRIC: Cooperative. Good eye contact. Appropriate mood and affect. SKIN: Warm, dry, normal turgor, no rashes, healed wounds s/p mastectomy b/l. CBC, BMP 03/18/18 06:30 03/19/18 06:30 Active Medications Heparin Sodium (Porcine) (Heparin -) 5,000 unit SQ BID [facility] Last Admin: 03/19/18 09:21 Dose: 5,000 unit Dextrose/Lactated Ringer's (D5-Lr -) 1,000 mls @ 83 mls/hr IV ASDIR [facility] Last Admin: 03/18/18 21:13 Dose: 83 mls/hr Lorazepam (Ativan Injection -) 0.5 mg IVPUSH HS PRN PRN Reason: ANXIETY Last Admin: 03/18/18 00:54 Dose: 0.5 mg Ondansetron HCl (Zofran Injection) 4 mg IVPB Q8H-IV [facility] Last Admin: 03/19/18 09:23 Dose: Not Given Pantoprazole Sodium (Protonix Iv) 40 mg IVPUSH DAILY [facility] Last Admin: 03/19/18 09:21 Dose: 40 mg CONSULT: GI- Dr. Concepcion Cardio- Dr. Villarreal IMAGING: * Abd xray (03/18/18): Slight decrease in abd distension. Still no evidence of small bowel or partial small bowel obstruction. * CTAP (03/17/18): Mod dilatation of prox and mid small bowel loops measuring up to 3.4 cm. Supraumbilical fat containing hernia w/o evidence of incarceration or herniating bowel loops. ASSESSMENT/PLAN: 68 Yoruba speaking female with a PMH of gastritis, lactose intolerance, that presented to the hospital complaining of multiple episodes of NBNB vomiting since yesterday in the evening. #SBO; Resolved. -Repeat Abd xray noted above, no evidence of small bowel or partial SBO. -Per surg, no indication for acute surgical intervention given history of abdominal and pelvic surgeries. -Meenu CLD. Advanced to lactose-restricted/low fat diet. -Zofran 4 mg IVPB Q8H for nausea #Epigastric pain; likely related to gastritis vs SBO but also r/o acs with nonspecific t wave inversions in lateral leads -repeat Abd xray noted resolving SBO -Cardiology consulted; recs appreciated. -Protonix 40 mg IV daily #F/E/N: ns/no changes/Lactose restricted/low fat diet Dispo: cont to monitor on med surg MEDICATIONS CONFIRMED WITH PHARMACY. Visit type - Emergency Visit Emergency Visit: Yes ED Registration Date: 03/17/18 Care time: The patient presented to the Emergency Department on the above date and was hospitalized for further evaluation of their emergent condition. - New Patient This patient is new to me today: No - Critical Care Critical Care patient: No
--- NOTE | 2018-03-19 20:53 | PN ---
Teaching Attending Note Name of Resident: Jennifer Marshall ATTENDING PHYSICIAN STATEMENT I saw and evaluated the patient. I reviewed the resident's note and discussed the case with the resident. I agree with the resident's findings and plan as documented. SUBJECTIVE: Comfortable with no acute distress. OBJECTIVE: Vital Signs Temperature 98.6 F 03/19/18 17:25 Pulse Rate 80 03/19/18 17:25 Respiratory Rate 18 03/19/18 17:25 Blood Pressure 126/78 03/19/18 17:25 O2 Sat by Pulse Oximetry (%) 90 L 03/18/18 21:00 GENERAL: Awake, alert, and fully oriented, in no acute distress. HEAD: Normal with no signs of trauma. EYES: Extraocular movements intact, sclera anicteric, conjunctiva clear. EARS, NOSE, THROAT: Oropharynx clear without exudates. Moist mucous membranes, s /p NG tube NECK: Normal range of motion, supple without lymphadenopathy, JVD, or masses. LUNGS: Breath sounds equal, CTA bl. No wheezes, and no crackles. No accessory muscle use. HEART: Regular rate and rhythm, normal S1 and S2 without murmur, rub or gallop. ABDOMEN: Soft, nontender, not distended, normoactive bowel sounds, no guarding, no rebound, no masses. EXTREMITIES: No peripheral edema. NEUROLOGICAL: Non focal. Normal speech. PSYCHIATRIC: Cooperative. Good eye contact. Appropriate mood and affect. SKIN: Warm, dry, normal turgor, no rashes, healed wounds s/p mastectomy b/l. CBCD WBC 5.4 K/mm3 (4.0-10.0) 03/18/18 06:30 RBC 4.06 M/mm3 (3.60-5.2) 03/18/18 06:30 Hgb 12.6 GM/dL (10.7-15.3) 03/18/18 06:30 Hct 35.2 % (32.4-45.2) 03/18/18 06:30 MCV 86.7 fl (80-96) 03/18/18 06:30 MCHC 35.8 g/dl (32.0-36.0) 03/18/18 06:30 RDW 14.5 % (11.6-15.6) 03/18/18 06:30 Plt Count 250 K/MM3 (134-434) 03/18/18 06:30 MPV 9.3 fl (7.5-11.1) 03/18/18 06:30 CMP Sodium 144 mmol/L (136-145) 03/19/18 06:30 Potassium 3.6 mmol/L (3.5-5.1) 03/19/18 06:30 Chloride 108 mmol/L (98-107) H 03/19/18 06:30 Carbon Dioxide 29 mmol/L (21-32) 03/19/18 06:30 Anion Gap 6 MMOL/L (8-16) L 03/19/18 06:30 BUN 19 mg/dL (7-18) H 03/19/18 06:30 Creatinine 0.6 mg/dL (0.55-1.3) 03/19/18 06:30 Creat Clearance w eGFR > 60 (>60) 03/19/18 06:30 Random Glucose 101 mg/dL (74-106) 03/19/18 06:30 Calcium 7.9 mg/dL (8.5-10.1) L 03/19/18 06:30 Total Bilirubin 0.5 mg/dL (0.2-1) 03/18/18 06:30 AST 25 U/L (15-37) 03/18/18 06:30 ALT 14 U/L (13-61) 03/18/18 06:30 Alkaline Phosphatase 103 U/L (45-117) 03/18/18 06:30 Total Protein 6.4 g/dl (6.4-8.2) 03/18/18 06:30 Albumin 3.2 g/dl (3.4-5.0) L 03/18/18 06:30 CARDIAC ENZYMES Troponin I < 0.02 ng/ml (0.00-0.05) 03/17/18 16:00 Current Medications Generic Name Dose Route Start Last Admin Trade Name Freq PRN Reason Stop Dose Admin Heparin Sodium (Porcine) 5,000 unit 03/17/18 22:00 03/19/18 09:21 Heparin - SQ 5,000 unit BID JESSICA Administration Lorazepam 0.5 mg 03/17/18 23:54 03/18/18 00:54 Ativan Injection - IVPUSH 0.5 mg HS PRN Administration ANXIETY Ondansetron HCl 4 mg 03/18/18 13:30 03/19/18 17:09 Zofran Injection IVPB Not Given Q8H-IV JESSICA Pantoprazole Sodium 40 mg 03/20/18 10:00 Protonix - PO DAILY [facility] Home Medications Medication Instructions Recorded Aspirin [ASA -] 325 mg PO DAILY 08/29/14 Zolpidem Tartrate 10 mg PO HS 03/17/18 ASSESSMENT AND PLAN: The patient is a 68 year old Sinhala speaking female with a PMHx of gastritis, lactose intolerance, that presented to the hospital complaining of multiple episodes of vomiting since yesterday. was found to have SBO. # SBO: improved, patient was able to tolerate diet, NG tube removed. surgical consult dr dewey. Dispo: med surg DVt px: heparin is stable discharge the patient.
[2018-03-19] MEDS ORDERED: ACETAMINOPHEN 325 MG TABLET (FP) PO ONE (23:26)
[2018-03-20] MEDS: ONDANSETRON 4 MG/2 ML VIAL IVPB SCH ×2 (02:09→09:56)
[2018-03-20] MEDS: HEPARIN NA (PORCINE) 5,000 UNITS/ML 1ML VIAL SQ SCH (09:56)
[2018-03-20] MEDS ORDERED: PANTOPRAZOLE 40 MG TABLET (FP) PO SCH (10:00)
--- NOTE | 2018-03-20 13:52 | PN ---
Teaching Attending Note Name of Resident: Jennifer Marshall ATTENDING PHYSICIAN STATEMENT I saw and evaluated the patient. I reviewed the resident's note and discussed the case with the resident. I agree with the resident's findings and plan as documented. SUBJECTIVE: no fever or chills. No abd pain, had BMs. OBJECTIVE: NAD CV : RRR, 2/6SM at base . with no radiation Lungs: CTAB Ext ; no edema Abd: soft, NT, DN ,NLBS ASSESSMENT AND PLAN: 68 y/o lady with h/o gastritis , who presented with abd pain and was found to have SB O - SBO , improved with conservative management had BM , tolerated diet f/u with sx as out pt f/u on hernia dc home
--- NOTE | 2018-03-20 13:55 | DS ---
Physical Exam: SUBJECTIVE: Patient seen and examined. No acute events overnight. OBJECTIVE: Vital Signs Period Temp Pulse Resp BP Sys/Hogan Pulse Ox Last 24 Hr 98.4 F-98.6 F 77-80 18-18 103-131/63-86 95-97 PHYSICAL EXAM GENERAL: AAOx3. HEENT: AT/NC. EOMI. BRENNAN. Moist mucous membranes, NG tube draining yellow fluid. NECK: Normal range of motion, supple without lymphadenopathy, JVD, or masses. LUNGS: Breath sounds equal, clear to auscultation bilaterally. No wheezes, and no crackles. No accessory muscle use. HEART: RRR. Normal S1, S2. No murmurs noted. ABDOMEN: Soft NT/ND. No masses noted. MUSCULOSKELETAL: Normal range of motion at all joints. UPPER EXTREMITIES: No peripheral edema. LOWER EXTREMITIES: No peripheral edema. NEUROLOGICAL: Non focal. Normal speech. PSYCHIATRIC: Cooperative. Good eye contact. Appropriate mood and affect. SKIN: Warm, dry, normal turgor, no rashes, healed wounds s/p mastectomy b/l. LABS HOSPITAL COURSE: Date of Admission:03/17/18 IMAGING: * Abd xray (03/18/18): Slight decrease in abd distension. Still no evidence of small bowel or partial small bowel obstruction. * CTAP (03/17/18): Mod dilatation of prox and mid small bowel loops measuring up to 3.4 cm. Supraumbilical fat containing hernia w/o evidence of incarceration or herniating bowel loops. 68 Emirati speaking female with a PMH of gastritis, lactose intolerance, that presented to the hospital complaining of multiple episodes of NBNB vomiting admitted for SBO. CT imaging showed mod. dilatation of small bowel loops consistent with mid to distal SBO. As a result, surg was consulted. Upon surg eval, there was no indication for surg intervention. NGtube was placed for decompression and pt was placed NPO. Throughout hospital stay, pt's symptoms of abd pain improved and NGtube was removed after which pt was given PO diet. Repeat abd xray was done that did not show evidence of SBO. Pt was able to tolerate PO diet. Additionally, pt's EKG showed minor T wave changes in lateral leads and as a result, cardio was consulted. Upon cardiac eval, pt was not found to have an acute cardiac condition. Pt's symptoms improved and and was subsequently discharged home with recommendation to follow up with her PCP, cardio, and surg. Date of Discharge: 03/20/18 Minutes to complete discharge: 40 Discharge Summary Reason For Visit: SMALL BOWEL OBSTRUCTION Condition: Improved - Instructions Diet, Activity, Other Instructions: You were seen in the hospital for complaints of vomiting and epigastric pain. In the hospital, you had an abdominal CT done that showed a small bowel obstruction. You were seen and assessed by a surgeon and found to have no acute need for surgery at this time. Your symptoms were monitored during your stay with restricted diet. A repeat abdominal x-ray was later done that showed no evidence of small bowel obstruction. Your symptoms improved during your hospital stay. You are being discharged home. Additionally, on CT imaging, you had an incidental finding of a fat-containing hernia. You were assessed by the surgeon for this reason as well, but with no acute concern for surgery at this time. MEDICAL RECOMMENDATIONS Please continue taking your home medications as directed. *Please avoid consumption of all dairy products that contain lactose as this may be contributing factor for your symptoms.* CONSULT RECOMMENDATIONS Please follow up with your primary care physician, Dr. Lind, within 1 week. Please follow up with your surgeon, Dr. Concepcion, within 1 week for evaluation of an elective hernia repair. Please follow up with your chemic mangler, Dr. Shoemaker, within 1 week for further evaluation of your EKG findings. If you cannot follow up with your chemic mangler , you may make an appointment with Dr. Villarreal at . If continue to experience persistent or worsening nausea/vomiting, abdominal pain/distension, chest pain, shortness of breath, blood in your stool, please proceed to your nearest emergency room immediately. Referrals: Chilo Villarreal MD [Staff Physician] - 1 Week Mitchell Concepcion MD [Staff Physician] - 1 Week Zan Lind MD [Primary Care Provider] - 1 Week Disposition: HOME - Home Medications Comprehensive Discharge Medication List: Ambulatory Orders Aspirin [ASA -] 81 mg PO DAILY 08/29/14 Zolpidem Tartrate 10 mg PO HS 03/17/18 Rosuvastatin Calcium [Crestor] 20 mg PO HS 03/20/18 This patient is new to me today: No Emergency Visit: Yes ED Registration Date: 03/17/18 Care time: The patient presented to the Emergency Department on the above date and was hospitalized for further evaluation of their emergent condition. Critical Care patient: No - Discharge Referral Referred to [facility] Med P.C.: No
[2018-03-20 14:05] VITALS: BP 110/72; PULSE 80; TEMP 98.8
== END 2018-03-20 15:43 | disposition home or self-care (01) | DRG 389 ==
LOC: JER 11:20 → JERBED 16:29 → J7W 23:24
PROVIDERS: ADMIT Internal Medicine; ATTEND Internal Medicine
PROC: 0D9670Z Drainage of Stomach with Drainage Device, Via Natural or Artificial Opening (ICD-10-PCS; principal; 2018-03-17)
DX: K56.699 Other intestinal obstruction unspecified as to partial versus complete obstruction (principal); K43.6 Other and unspecified ventral hernia with obstruction, without gangrene; K21.9 Gastro-esophageal reflux disease without esophagitis; E78.00 Pure hypercholesterolemia, unspecified; E73.9 Lactose intolerance, unspecified; K29.50 Unspecified chronic gastritis without bleeding; E66.9 Obesity, unspecified; Z68.31 Body mass index [BMI] 31.0-31.9, adult; G43.A0 Cyclical vomiting, in migraine, not intractable; Z87.891 Personal history of nicotine dependence; Z85.3 Personal history of malignant neoplasm of breast
CPT/HCPCS: 36415; 71045-TC-FY; 74018-TC-FY; 74019-TC-FY; 74177-TC; 80048; 80053; 83690; 83735; 84100; 84484; 85025; 85610; 85730; 86850; 86900; 86901; 93005; 93010; 99284-25; J0131; J1644; J7030

== ENCOUNTER 2019-10-06 03:11 | Emergency (ER) | payer BC ==
[2019-10-06] MEDS ORDERED: ACETAMINOPHEN 1000 MG/100 ML VIAL (NON FORMULARY) IVPB ONE (03:15)
[2019-10-06] MEDS ORDERED: ACETAMINOPHEN INJECTION 100 ML IVPB ONE (03:19)
[2019-10-06 03:21] VITALS: BMI 27.4
--- NOTE | 2019-10-06 03:22 | PDOC ---
History of Present Illness - General Chief Complaint: Chest Pain Stated Complaint: CHEST PAIN Time Seen by Provider: 10/06/19 03:21 History Source: Patient Exam Limitations: No Limitations - History of Present Illness Initial Comments: 10/06/19 03:24 69yF w PMHx BRACA s/p prophylactic mastectomy, HLD, GERD presenting w chest pain, L arm pain. At 3pm progressive worsening back aches evolving into moderate epigastric pain radiating up sternum at 6pm and brief L face numbness and L humerus muscle pain at 10pm. Not relieved w ibuprofen and mylanta. ABD/chest pain similar to prior GERD episodes. Denies fever, cough, SOB, n/v, ABD distension. Past History - Medical History Allergies/Adverse Reactions: Allergies Allergy/AdvReac Type Severity Reaction Status Date / Time No Known Allergies Allergy Verified 10/06/19 03:18 Home Medications: Ambulatory Orders Rosuvastatin Calcium [Crestor] 20 mg PO HS 03/20/18 Esomeprazole Magnesium [Nexium 24Hr] 20 mg PO DAILY 03/14/19 Metoprolol Tartrate 1 tab PO DAILY PRN 03/14/19 Tramadol HCl 50 mg PO QID #30 tablet MDD 4 03/14/19 Famotidine [Pepcid] 20 mg PO DAILY 50 Days #50 tablet 10/06/19 Cancer: Yes (breast cancer (implants 2011)) COPD: No GI Disorders: Yes (acid reflux) Hypercholesterolemia: Yes - Surgical History Cholecystectomy: Yes - Psycho-Social/Smoking History Smoking History: Never smoked Have you smoked in the past 12 months: No Number of Cigarettes Smoked Daily: 0 If you are a former smoker, when did you quit?: 15yrs ago Information on smoking cessation initiated: No - Substance Abuse Hx (Audit-C & DAST Scrn) How often the patient has a drink containing alcohol: Never Score: In Men: 4 or > Positive; In Women: 3 or > Positive: 0 Screen Result (Pos requires Nsg. Audit-10AR): Negative In the last yr the pt used illegal drug/Rx for NonMed reason: No Score: Yes response is considered Positive: 0 Screen Result (Positive result requires Nsg. DAST-10): Negative Review of Systems - Review of Systems Constitutional: No: Chills, Fever HEENTM: No: Eye Pain, Ear Discharge Respiratory: No: Cough, Shortness of Breath Cardiac (ROS): Yes: Chest Pain. No: Lightheadedness ABD/GI: No: Constipated, Diarrhea, Nausea, Vomiting : No: Burning, Dysuria Musculoskeletal: No: Back Pain, Joint Pain Integumentary: No: Bruising, Dryness Neurological: No: Headache, Seizure Psychiatric: No: Anxiety, Depression Endocrine: No: Intolerance to Cold, Intolerance to Heat Hematologic/Lymphatic: No: Anemia, Blood Clots *Physical Exam - Vital Signs Last Vital Signs Temp Pulse Resp BP Pulse Ox 97.9 F 59 L 18 122/74 100 10/06/19 03:14 10/06/19 03:14 10/06/19 03:14 10/06/19 03:14 10/06/19 03:14 - Physical Exam General Appearance: Yes: Nourished, Appropriately Dressed, Mild Distress HEENT: positive: EOMI, BRENNAN, Normal Voice, Hearing Grossly Normal. negative: Scleral Icterus (R), Scleral Icterus (L) Respiratory/Chest: positive: Chest Tender (mild midsternal ), Lungs Clear, Normal Breath Sounds. negative: Respiratory Distress, Crackles, Rales, Rhonchi, Stridor, Wheezing Cardiovascular: positive: Regular Rhythm, S1, S2, Bradycardia. negative: Edema, Murmur Comments:: 10/06/19 04:38 2+ radial pulses gema Gastrointestinal/Abdominal: positive: Normal Bowel Sounds, Tender (mild epigastric), Flat, Soft. negative: Organomegaly Extremity: positive: Other (R upper arm diffuse mild tenderness, no swelling/echymosis/rash) Integumentary: positive: Normal Color, Warm Neurologic: positive: assembler wet wash II-XII NML intact, Fully Oriented, Alert, Normal Mood/Affect, Normal Response, Motor Strength 5/5, Responsive. negative: Numbness, Confused, Disoriented Heart Score/ECG Review - History History: Slightly suspicious - Electrocardiogram EKG: Normal - Age Age: >/= 65 - Risk Factors Risk Factors Heart Score: Yes Hx Hypercholesterolemia, No Hx Hypertension, No Hx Diabetes, No Smoking History, No Positive family hx of cardiac disease, No Hx Obesity Based on the list above the patient has:: 1-2 risk factors - Troponin Troponin: </= normal limit - Score Heart Score - Total: 3 ED Treatment Course - LABORATORY CBC & Chemistry Diagram: 10/06/19 04:47 10/06/19 03:40 - ADDITIONAL ORDERS Additional order review: Laboratory Results 10/06/19 10/06/19 10/06/19 03:40 03:40 03:40 PT with INR 11.10 INR 0.94 PTT (Actin FS) 29.6 Sodium 140 Potassium 4.2 Chloride 108 H Carbon Dioxide 25 Anion Gap 6 L BUN 14.2 Creatinine 0.6 Est GFR (CKD-EPI)AfAm 108.55 Est GFR (CKD-EPI)NonAf 93.66 Random Glucose 105 Calcium 8.5 Total Bilirubin 0.3 AST 32 ALT 14 Alkaline Phosphatase 93 Troponin I < 0.02 Total Protein 6.3 L Albumin 3.2 L 10/06/19 03:40 RBC Cancelled MCV Cancelled MCHC Cancelled RDW Cancelled MPV Cancelled Neutrophils % Cancelled Lymphocytes % Cancelled Monocytes % Cancelled Eosinophils % Cancelled Basophils % Cancelled - Medications Given in the ED: ED Medications Discontinued Medications Generic Name Dose Route Start Last Admin Trade Name Linda PRN Reason Stop Dose Admin Acetaminophen 1,000 mg 10/06/19 03:15 10/06/19 03:29 Ofirmev Injection - IVPB 10/06/19 03:16 1,000 mg ONCE ONE Administration Al Hydroxide/Mg Hydroxide 30 ml 10/06/19 03:25 10/06/19 03:57 Mylanta Suspension - PO 10/06/19 03:26 30 ml ONCE ONE Administration Famotidine/Sodium Chloride 20 mg in 50 mls @ 100 mls/hr 10/06/19 03:25 10/06/19 04:06 Pepcid 20 Mg Premixed Ivpb - IVPB 10/06/19 03:54 100 mls/hr ONCE ONE Administration Lidocaine HCl 20 ml 10/06/19 03:25 10/06/19 03:58 Xylocaine 2% Viscous Oral - MM 10/06/19 03:26 20 ml ONCE ONE Administration Medical Decision Making - Medical Decision Making 10/06/19 03:24 EKG sinus bradycardia, HR 57, QTc 426, TWI V2-4 unchanged vs 2017 CXR - clear lung hi --- 69yF w PMHx BRACA s/p prophylactic mastectomy, HLD, GERD presenting w chest pain, L arm pain. Likely GERD vs costochondritis (reproducible chest pain). Low concern for ACS (neg trop, unchanged EKG) vs PNA (clear lungs) vs CVA (no focal neuro deficits) Given tylenol, pepcid, maalox w relief DC home w PCP/cards f/u, pepcid prescription Discharge - Discharge Information Problems reviewed: Yes Clinical Impression/Diagnosis: GERD (gastroesophageal reflux disease) Qualifiers: Esophagitis presence: without esophagitis Qualified Code(s): K21.9 - Gastro- esophageal reflux disease without esophagitis Condition: Improved Disposition: HOME - Follow up/Referral - Patient Discharge Instructions Patient Printed Discharge Instructions: DI for Gastroesophageal Reflux Disease (GERD) Additional Instructions: Take the prescribed Pepcid if you have pain Follow up with your primary care doctor and pharmacist per diem Come back to the ED if you have worsening chest pain, trouble breathing, or start vomiting --- [place] el Pepcid recetado si tiene dolor Ashley un seguimiento con jauregui mdico de atencin primaria y cardilogo Regrese al servicio de urgencias si tiene un dolor en el pecho que empeora, problemas para respirar o comienza a vomitar - Post Discharge Activity
[2019-10-06] MEDS ORDERED: MAG HYDROX/AL HYDROX/SIMETH -MYLANTA- ORAL SUSPENSION PO ONE (03:25)
[2019-10-06] MEDS ORDERED: LIDOCAINE VISCOUS 2% ORAL/TOP 20 ML UNIT-DOSE CUP MM ONE (03:25)
[2019-10-06] MEDS ORDERED: FAMOTIDINE 20 MG/50 ML IVPB 20 MG/50 ML MG IVPB ONE ×2 (03:25→03:59)
[2019-10-06] MEDS ORDERED: LIDOCAINE VISCOUS 2% ORAL/TOP 20 ML UNIT-DOSE CUP ONE (03:47)
[2019-10-06] MEDS ORDERED: MAG HYDROX/AL HYDROX/SIMETH 30 ML UNIT-DOSE CUP ONE (03:47)
--- NOTE | 2019-10-06 04:16 | PDOC ---
Attending Attestation - Resident Resident Name: Miguel Marcelino - ED Attending Attestation I have performed the following: I have examined & evaluated the patient, The case was reviewed & discussed with the resident, I agree w/resident's findings & plan, Exceptions are as noted - HPI HPI: 69 yo F history BRCA s/p mastectomy, HL, GERD presents with cp since yesterday afternoon. She states that her appetite was less than usual, then she developed epigastric pain radiating to L chest and L arm. Denies N/V, sweating, SOB. No recent illness. She has had similar symptoms with her reflux in the past. - Physicial Exam PE: GENERAL: Awake, alert, and fully oriented, in no acute distress. Appears anxious HEAD: No signs of trauma EYES: PERRLA, EOMI, sclera anicteric, conjunctiva clear ENT: Auricles normal inspection, hearing grossly normal, nares patent, oropharynx clear without exudates. Moist mucosa NECK: Normal ROM, supple, no lymphadenopathy, JVD, or masses LUNGS: Breath sounds equal, clear to auscultation bilaterally. No wheezes, and no crackles HEART: Regular rate and rhythm, normal S1 and S2, no murmurs, rubs or gallops ABDOMEN: Soft, nontender, normoactive bowel sounds. No guarding, no rebound. No masses EXTREMITIES: Normal range of motion, no edema. No clubbing or cyanosis. No cords, erythema, or tenderness NEUROLOGICAL: Cranial nerves II through XII grossly intact. Normal speech, normal gait. Motor and sensation intact SKIN: Warm, dry, normal turgor, no rashes or lesions noted. - Medical Decision Making 10/06/19 04:16 Pt with symptoms that are similar to prior episodes of GERD. Symptoms have been going on since approximately 6:30pm last night. Will obtain CBC, CMP, troponin. Would expect an elevation at this point if it is ACS, as it has been more than 3 hours. Heart Score/ECG Review - History History: Slightly suspicious - Electrocardiogram EKG: Normal - Age Age: >/= 65 - Risk Factors Risk Factors Heart Score: Yes Hx Hypercholesterolemia Based on the list above the patient has:: 1-2 risk factors - Troponin Troponin: </= normal limit - Score Heart Score - Total: 3 Discharge - Discharge Information Problems reviewed: Yes Clinical Impression/Diagnosis: GERD (gastroesophageal reflux disease) Qualifiers: Esophagitis presence: without esophagitis Qualified Code(s): K21.9 - Gastro- esophageal reflux disease without esophagitis Condition: Improved Disposition: HOME - Additional Discharge Information Prescriptions: Famotidine [Pepcid] 20 mg PO DAILY 50 Days #50 tablet - Follow up/Referral - Patient Discharge Instructions Patient Printed Discharge Instructions: DI for Gastroesophageal Reflux Disease (GERD) Additional Instructions: Take the prescribed Pepcid if you have pain Follow up with your primary care doctor and director of rehabilitation Come back to the ED if you have worsening chest pain, trouble breathing, or start vomiting --- [place] el Pepcid recetado si tiene dolor Ashley un seguimiento con jauregui mdico de atencin primaria y cardilogo Regrese al servicio de urgencias si tiene un dolor en el pecho que empeora, problemas para respirar o comienza a vomitar - Post Discharge Activity
[2019-10-06 04:34] LABS: INR 0.94 (0.83-1.09); PROTHROMBIN TIME (PATIENT) 11.1 SEC (9.7-13.0)
[2019-10-06 04:45] LABS: ALBUMIN 3.2 g/dl (3.4-5.0); ALK PHOS 93 U/L (45-117); ANION GAP 6 MMOL/L (8-16); BILIRUBIN,TOTAL 0.3 mg/dL (0.2-1); BLOOD UREA NITROGEN 14.2 mg/dL (7-18); CALCIUM 8.5 mg/dL (8.5-10.1); CHLORIDE 108 mmol/L (98-107); CO2 25 mmol/L (21-32); CREATININE 0.6 mg/dL (0.55-1.3); GLUCOSE,RANDOM 105 mg/dL (74-106); POTASSIUM 4.2 mmol/L (3.5-5.1); SGOT/AST 32 U/L (15-37); SGPT/ALT 14 U/L (13-61); SODIUM 140 mmol/L (136-145); TOT PROT 6.3 g/dl (6.4-8.2)
[2019-10-06 05:04] LABS: BASO % 0.6 % (0-2.0); EOS % 1.6 % (0-4.5); HEMATOCRIT 32.7 % (32.4-45.2); LYMPH % 28.7 % (8-40); MCH 30.5 pg (25.7-33.7); MCHC 33.5 g/dl (32.0-36.0); MEAN CELL VOLUME 90.9 fl (80-96); NEUT % 62.1 % (42.8-82.8); PLATELET COUNT 199 K/MM3 (134-434); RBC 3.59 M/mm3 (3.60-5.2); RDW 13.4 % (11.6-15.6)
[2019-10-06 05:33] VITALS: BP 123/79; PULSE 62; TEMP 98.7
--- NOTE | 2019-10-06 09:27 | EKG ---
Test Reason : Blood Pressure : / mmHG Vent. Rate : 057 BPM Atrial Rate : 057 BPM P-R Int : 128 ms QRS Dur : 080 ms QT Int : 438 ms P-R-T Axes : 011 -01 006 degrees QTc Int : 426 ms SINUS BRADYCARDIA NONSPECIFIC ST AND T WAVE ABNORMALITY ABNORMAL ECG WHEN COMPARED WITH ECG OF 17-MAR-2018 12:20, No significant changes Confirmed by Isabel Mejia ([id number]) on 10/06/2019 9:27:32 AM Referred By: Confirmed By:Isabel Mejia
== END 2019-10-06 05:17 | disposition home or self-care (01) ==
LOC: JER 03:11
PROC: 3E033NZ Introduction of Analgesics, Hypnotics, Sedatives into Peripheral Vein, Percutaneous Approach (ICD-10-PCS; principal; 2019-10-06)
PROC: 3E033GC Introduction of Other Therapeutic Substance into Peripheral Vein, Percutaneous Approach (ICD-10-PCS; 2019-10-06)
DX: K21.9 Gastro-esophageal reflux disease without esophagitis (principal)
CPT/HCPCS: 36415; 71045-TC-FY; 80053; 82550; 82553; 84484; 85025; 85610; 85730; 93005; 93010; 99285-25; J0131

== ENCOUNTER 2019-11-03 00:32 | Emergency (ER) | payer BC ==
[2019-11-03 01:11] VITALS: BP 163/98; PULSE 68; TEMP 98.3; BMI 26.9
--- NOTE | 2019-11-03 02:04 | PDOC ---
History of Present Illness - General Chief Complaint: Blood Pressure Problem Stated Complaint: PALPITATION Time Seen by Provider: 11/03/19 02:03 History Source: Patient Exam Limitations: No Limitations - History of Present Illness Initial Comments: 11/03/19 02:13 69yF w PMHx BRACA s/p prophylactic mastectomy, HLD, GERD, recent ventral hernia repair presenting w chest/arm pain. At 9pm last night felt mild midsternal chest pain and L arm pain while watching TV, checked BP multiple times 150-160/80. Pain resolved on re-eval in ED. Didnt take any meds for symptoms. Last evaluated 10/05 for similar chest pain attributed to GERD/costochondritis, DC home w cards f/u. Denies fever, n/v, cough, SOB. Past History - Medical History Allergies/Adverse Reactions: Allergies Allergy/AdvReac Type Severity Reaction Status Date / Time No Known Allergies Allergy Verified 11/03/19 01:10 Home Medications: Ambulatory Orders Rosuvastatin Calcium [Crestor] 20 mg PO HS 03/20/18 Esomeprazole Magnesium [Nexium 24Hr] 20 mg PO DAILY 03/14/19 Metoprolol Tartrate 1 tab PO DAILY PRN 03/14/19 Tramadol HCl 50 mg PO QID #30 tablet MDD 4 03/14/19 Famotidine [Pepcid] 20 mg PO DAILY 50 Days #50 tablet 10/06/19 Cancer: Yes (breast cancer (implants 2011)) COPD: No Diabetes: No GI Disorders: Yes (acid reflux) HTN: No Hypercholesterolemia: Yes - Surgical History Cholecystectomy: Yes - Psycho-Social/Smoking History Smoking History: Never smoked Have you smoked in the past 12 months: No Number of Cigarettes Smoked Daily: 0 If you are a former smoker, when did you quit?: 15yrs ago Information on smoking cessation initiated: No - Substance Abuse Hx (Audit-C & DAST Scrn) How often the patient has a drink containing alcohol: Never Score: In Men: 4 or > Positive; In Women: 3 or > Positive: 0 Screen Result (Pos requires Nsg. Audit-10AR): Negative In the last yr the pt used illegal drug/Rx for NonMed reason: No Score: Yes response is considered Positive: 0 Screen Result (Positive result requires Nsg. DAST-10): Negative Review of Systems - Review of Systems Constitutional: No: Chills, Fever HEENTM: No: Eye Pain, Nose Pain Respiratory: No: Cough, Shortness of Breath Cardiac (ROS): Yes: Chest Pain. No: Palpitations ABD/GI: No: Constipated, Diarrhea, Nausea, Vomiting : No: Burning, Dysuria Musculoskeletal: No: Back Pain, Joint Pain Integumentary: No: Bruising, Flushing Neurological: No: Headache, Seizure Psychiatric: No: Anxiety, Depression Endocrine: No: Intolerance to Cold, Intolerance to Heat Hematologic/Lymphatic: No: Anemia, Blood Clots *Physical Exam - Vital Signs Last Vital Signs Temp Pulse Resp BP Pulse Ox 98.3 F 68 18 163/98 99 11/03/19 00:40 11/03/19 00:40 11/03/19 00:40 11/03/19 00:40 11/03/19 00:40 - Physical Exam General Appearance: Yes: Nourished, Appropriately Dressed. No: Apparent Distre ss HEENT: positive: EOMI, BRENNAN, Normal Voice, Hearing Grossly Normal. negative: Scleral Icterus (R), Scleral Icterus (L) Respiratory/Chest: positive: Lungs Clear, Normal Breath Sounds. negative: Chest Tender, Respiratory Distress Cardiovascular: positive: Regular Rhythm, Regular Rate, S1, S2 Gastrointestinal/Abdominal: positive: Normal Bowel Sounds, Flat, Soft. negative: Tender, Organomegaly Integumentary: positive: Normal Color, Warm Neurologic: positive: Fully Oriented, Alert, Normal Mood/Affect, Normal Response Heart Score/ECG Review - History History: Slightly suspicious - Electrocardiogram EKG: Normal - Age Age: >/= 65 - Risk Factors Risk Factors Heart Score: Yes Hx Hypercholesterolemia, No Hx Hypertension, No Hx Diabetes, No Smoking History, No Positive family hx of cardiac disease, No Hx Obesity Based on the list above the patient has:: 1-2 risk factors - Troponin Troponin: </= normal limit - Score Heart Score - Total: 3 ED Treatment Course - LABORATORY CBC & Chemistry Diagram: 11/03/19 02:45 11/03/19 02:45 Medical Decision Making - Medical Decision Making 11/03/19 04:40 EKG - sinus bradycardia, HR 53, QTc 382, no ST changes, unchanged --- Likely MSK pain. 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
--- NOTE | 2019-11-03 02:52 | PDOC ---
Attending Attestation - Resident Resident Name: Miguel Marcelino - ED Attending Attestation I have performed the following: I have examined & evaluated the patient, The case was reviewed & discussed with the resident, I agree w/resident's findings & plan - HPI HPI: 11/03/19 03:09 Pt comes with left arm and left shoulder funny feeling and fear that this could be her heart. She is anxious and she recently had a hiatal hernia repair 4 days ago. Pt is very clear that she has no chest pain and no abd pain and no flank pain and no SOB. 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 She will call him tommorrow to schedule an appointment. - Physicial Exam PE: 11/03/19 03:12 Normal exam Pt has epigastric scars from laparoscopic surgery Pt has no fevers and no chills. heart and lungs clear abd soft normal BS no rebound ++ guarding no ext swelling or edema normal neuro exam - Medical Decision Making 11/03/19 04:04 PT HAS NORMAL LABS AND NORMAL EKG; UNCHANGED FROM HER PREVIOUS. SHE IS STABLE FOR DISCHARGE HOME Heart Score/ECG Review - ECG Intrepretation Rhythm: Regular Rhythm - [place]: Normal - P and [place] Delta Wave(s) Present: No WPW: No - QRS Poor R Wave Progression: No Q Wave Present: No - ST and T Early Repolarization: No Non Specific ST-T Wave changes: No Flattened T Waves: No Prolonged Q-T Interval: No - ECG Impressions Normal ECG: Yes Non-specific ST Elevation: No Ischemic Changes: No [place] Pointes: No WPW: No Discharge - Discharge Information Problems reviewed: Yes Clinical Impression/Diagnosis: Musculoskeletal pain Condition: Good Disposition: HOME - Follow up/Referral Referrals: Zan Lind MD [Primary Care Provider] - - Patient Discharge Instructions Patient Printed Discharge Instructions: DI for High Blood Pressure Additional Instructions: Your workup did not show anything concerning Please 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
[2019-11-03 03:39] LABS: BASO % 0.6 % (0-2.0); EOS % 1.9 % (0-4.5); HEMATOCRIT 34.5 % (32.4-45.2); HEMOGLOBIN 11.6 GM/dL (10.7-15.3); LYMPH % 34.1 % (8-40); MCH 30.4 pg (25.7-33.7); MCHC 33.6 g/dl (32.0-36.0); MEAN CELL VOLUME 90.5 fl (80-96); MEAN PLT VOLUME 9.6 fl (7.5-11.1); MONO % 6.3 % (3.8-10.2); NEUT % 57.1 % (42.8-82.8); PLATELET COUNT 236 K/MM3 (134-434); RBC 3.81 M/mm3 (3.60-5.2); RDW 13.4 % (11.6-15.6); WHITE BLOOD COUNT 6.3 K/mm3 (4.0-10.0)
[2019-11-03 03:52] LABS: ALBUMIN 3.4 g/dl (3.4-5.0); ALK PHOS 99 U/L (45-117); ANION GAP 6 MMOL/L (8-16); BILIRUBIN,TOTAL 0.4 mg/dL (0.2-1); BLOOD UREA NITROGEN 9.3 mg/dL (7-18); CALCIUM 8.8 mg/dL (8.5-10.1); CHLORIDE 106 mmol/L (98-107); CO2 28 mmol/L (21-32); CREATININE 0.6 mg/dL (0.55-1.3); GLUCOSE,RANDOM 93 mg/dL (74-106); POTASSIUM 3.7 mmol/L (3.5-5.1); SGOT/AST 42 U/L (15-37); SGPT/ALT 24 U/L (13-61); SODIUM 140 mmol/L (136-145); TOT PROT 6.7 g/dl (6.4-8.2)
--- NOTE | 2019-11-03 18:14 | EKG ---
Test Reason : Blood Pressure : / mmHG Vent. Rate : 053 BPM Atrial Rate : 053 BPM P-R Int : 156 ms QRS Dur : 086 ms QT Int : 408 ms P-R-T Axes : 071 -11 026 degrees QTc Int : 382 ms SINUS BRADYCARDIA MINIMAL VOLTAGE CRITERIA FOR LVH, MAY BE NORMAL VARIANT BORDERLINE ECG WHEN COMPARED WITH ECG OF 06-OCT-2019 03:12, T WAVE VARIATION Confirmed by EVELYN SCHMITZ MD ([id number]) on 11/03/2019 6:14:21 PM Referred By: Confirmed By:EVELYN SCHMITZ MD
== END 2019-11-03 04:59 | disposition home or self-care (01) ==
LOC: JER 00:32
DX: M79.10 Myalgia, unspecified site (principal)
CPT/HCPCS: 36415; 80053; 82550; 84484; 85025; 93005; 93010; 99285-25

== ENCOUNTER 2020-04-10 19:28 | Emergency (ER) | payer BC, OTHER ==
[2020-04-10 19:37] VITALS: TEMP 98.7; BMI 29.7
[2020-04-10] MEDS ORDERED: DIPHTH,PERTUSS(ACELL),TET 0.5 ML DISP.SYRIN IM ONE ×2 (19:59→20:06)
[2020-04-10 22:20] VITALS: BP 148/88; PULSE 76
== END 2020-04-10 22:20 | disposition home or self-care (01) ==
LOC: JER 19:28
PROC: 0JQ10ZZ Repair Face Subcutaneous Tissue and Fascia, Open Approach (ICD-10-PCS; principal; 2020-04-10)
PROC: 3E0234Z Introduction of Serum, Toxoid and Vaccine into Muscle, Percutaneous Approach (ICD-10-PCS; 2020-04-10)
DX: S01.81XA Laceration without foreign body of other part of head, initial encounter (principal); S00.03XA Contusion of scalp, initial encounter; W19.XXXA Unspecified fall, initial encounter
CPT/HCPCS: 70450-TC; 72125-TC; 90715; 99285-25

== ENCOUNTER 2021-06-15 11:45 | Observation (INO) | payer BC, OTHER ==
[2021-06-15 17:06] LABS: BASO % 0.5 % (0-2.0); EOS % 0.9 % (0-4.5); HEMATOCRIT 37.7 % (32.4-45.2); HEMOGLOBIN 12.8 GM/dL (10.7-15.3); INR 0.97 (0.83-1.09); LYMPH % 38.4 % (8-40); MCH 29.9 pg (25.7-33.7); MEAN PLT VOLUME 9.4 fl (7.5-11.1); MONO % 6.1 % (3.8-10.2); NEUT % 54.1 % (42.8-82.8); PLATELET COUNT 226 10^3/uL (134-434); PROTHROMBIN TIME (PATIENT) 11.1 SEC (9.7-13.0); RBC 4.29 M/mm3 (3.60-5.2); RDW 14.1 % (11.6-15.6); WHITE BLOOD COUNT 5.8 K/mm3 (4.0-10.0)
[2021-06-15 17:08] LABS: ACTIVATED PTT 31.8 SECONDS (25.2-36.5)
[2021-06-15 17:27] LABS: CALCIUM 9.1 mg/dL (8.5-10.1)
[2021-06-15 17:28] LABS: ALBUMIN 3.8 g/dl (3.4-5.0); BLOOD UREA NITROGEN 10.8 mg/dL (7-18)
[2021-06-15 17:31] LABS: CREATININE 0.5 mg/dL (0.55-1.3)
[2021-06-15 17:33] LABS: BILIRUBIN,TOTAL 0.7 mg/dL (0.2-1); TOT PROT 7.4 g/dl (6.4-8.2)
[2021-06-16] MEDS ORDERED: LACTATED RINGERS SOLUTION 1,000 ML/1,000 ML INFUS.BAG IV SCH (00:15)
[2021-06-16] MEDS ORDERED: MELATONIN 5 MG TABLETS PO ONE ×2 (00:57→01:45)
[2021-06-16 02:41] VITALS: BMI 29.2
[2021-06-16 06:43] LABS: HEMATOCRIT 35.7 % (32.4-45.2); HEMOGLOBIN 12.2 GM/dL (10.7-15.3); MEAN CELL VOLUME 88.1 fl (80-96); MEAN PLT VOLUME 8.8 fl (7.5-11.1); PLATELET COUNT 232 10^3/uL (134-434); RBC 4.06 M/mm3 (3.60-5.2)
[2021-06-16 07:01] LABS: BLOOD UREA NITROGEN 9.1 mg/dL (7-18); CALCIUM 8.7 mg/dL (8.5-10.1); MAGNESIUM 2.1 mg/dL (1.8-2.4)
[2021-06-16 07:04] LABS: CREATININE 0.6 mg/dL (0.55-1.3)
[2021-06-16] MEDS ORDERED: ENOXAPARIN NA (PORCINE) 40 MG/0.4 ML DISP.SYRIN SQ SCH (10:00)
[2021-06-16 11:49] VITALS: PULSE 71; TEMP 98
[2021-06-16 13:02] VITALS: BP 128/81
== END 2021-06-16 16:20 | disposition home or self-care (01) ==
LOC: JERFT 11:45 → JER 11:45 → JERBED 20:48 → J2W 06-16 00:41
PROVIDERS: ADMIT Hospitalist; ATTEND Internal Medicine
PROC: 3E023GC Introduction of Other Therapeutic Substance into Muscle, Percutaneous Approach (ICD-10-PCS; principal; 2021-06-15)
PROC: 3E0337Z Introduction of Electrolytic and Water Balance Substance into Peripheral Vein, Percutaneous Approach (ICD-10-PCS; 2021-06-15)
DX: R07.89 Other chest pain (principal); R79.89 Other specified abnormal findings of blood chemistry; Z87.891 Personal history of nicotine dependence; M85.80 Other specified disorders of bone density and structure, unspecified site; K21.9 Gastro-esophageal reflux disease without esophagitis; F41.9 Anxiety disorder, unspecified; Z90.10 Acquired absence of unspecified breast and nipple
CPT/HCPCS: 36415; 71275-TC; 80048; 80053; 83036; 83735; 84443; 84484; 85025; 85027; 85379; 85610; 85730; 93005; 93010; 93970-TC; 99285-25; C9803-CS; G0378; Q9967; U0003; U0005

== ENCOUNTER 2022-11-11 10:37 | Emergency (ER) | payer OTHER ==
[2022-11-11 10:47] VITALS: TEMP 98; BMI 32.3
[2022-11-11] MEDS ORDERED: PANTOPRAZOLE SODIUM 40 MG VIAL IVPUSH ONE (11:25)
[2022-11-11] MEDS ORDERED: MAG HYDROX/AL HYDROX/SIMETH 30 ML UNIT-DOSE CUP PO ONE (11:25)
[2022-11-11] MEDS ORDERED: SODIUM CHLORIDE 0.9% 1000 ML INFUS.BAG IV ONE (11:25)
[2022-11-11] MEDS ORDERED: ACETAMINOPHEN 1000 MG/100 ML BAG IVPB ONE (11:25)
[2022-11-11] MEDS ORDERED: SUCRALFATE 1 GM/10 ML UNIT DOSE CUPS PO ONE (11:25)
[2022-11-11] MEDS ORDERED: SUCRALFATE 1 GM TABLET (FP) ONE (11:41)
[2022-11-11] MEDS ORDERED: ACETAMINOPHEN INJECTION 100 ML IVPB ONE (11:42)
[2022-11-11] MEDS ORDERED: PANTOPRAZOLE SODIUM 40 MG/100 ML BAG IVPB ONE (11:42)
[2022-11-11] MEDS ORDERED: FAMOTIDINE 10 MG/ML VIAL IVPB ONE (11:43)
[2022-11-11] MEDS ORDERED: MAG HYDROX/AL HYDROX/SIMETH 30 ML UNIT-DOSE CUP ONE (11:43)
[2022-11-11] MEDS ORDERED: FAMOTIDINE 20 MG/50 ML IVPB 20 MG/50 ML MG IVPB ONE (12:00)
[2022-11-11 12:35] LABS: EPI CELLS 2 /uL (0-25.1); HYALINE CASTS 0 /uL (0-3.1); PH,URINE 8.5 (5.0-8.0); URINE APPEARANCE CLEAR; URINE BACTERIA 3 /uL (0-1359); URINE BILIRUBIN NEGATIVE (NEGATIVE); URINE COLOR YELLOW; URINE GLUCOSE (UA) NEGATIVE (NEGATIVE); URINE KETONE NEGATIVE (NEGATIVE); URINE LEUK ESTERASE NEGATIVE (NEGATIVE); URINE NITRITE NEGATIVE (NEGATIVE); URINE PROTEIN NEGATIVE (NEGATIVE); URINE RBC 27 /uL (0-23.9); URINE UROBILINOGEN 0.2 mg/dL (0.2-1.0); URINE WBC 2 /uL (0-25.8)
[2022-11-11 12:39] LABS: INR 0.99 (0.83-1.09); PROTHROMBIN TIME (PATIENT) 11.5 SEC (9.7-13.0)
[2022-11-11 12:41] LABS: ACTIVATED PTT 31.6 SECONDS (25.2-36.5)
[2022-11-11 12:43] LABS: BASO % 1.1 % (0-2.0); EOS % 2.6 % (0-4.5); HEMATOCRIT 40.9 % (32.4-45.2); HEMOGLOBIN 13.5 GM/dL (10.7-15.3); LYMPH % 32.2 % (8-40); MCH 29.8 pg (25.7-33.7); MCHC 33.1 g/dl (32.0-36.0); MEAN CELL VOLUME 89.9 fl (80-96); MEAN PLT VOLUME 10.1 fl (7.5-11.1); MONO % 5.3 % (3.8-10.2); NEUT % 58.8 % (42.8-82.8); PLATELET COUNT 212 10^3/uL (134-434); RBC 4.55 M/mm3 (3.60-5.2); RDW 13.8 % (11.6-15.6); WHITE BLOOD COUNT 6.2 K/mm3 (4.0-10.0)
[2022-11-11 12:52] LABS: POTASSIUM 4.6 mmol/L (3.5-5.1)
[2022-11-11 12:54] LABS: CALCIUM 9.3 mg/dL (8.5-10.1)
[2022-11-11 12:55] LABS: ALBUMIN 3.9 g/dl (3.4-5.0); MAGNESIUM 2.3 mg/dL (1.8-2.4)
[2022-11-11 12:58] LABS: CREATININE 0.6 mg/dL (0.55-1.3)
[2022-11-11 13:01] LABS: BILIRUBIN,TOTAL 0.5 mg/dL (0.2-1); TOT PROT 8.1 g/dl (6.4-8.2)
[2022-11-11 15:15] VITALS: BP 138/70; PULSE 89; RESP 16
== END 2022-11-11 15:16 | disposition home or self-care (01) ==
LOC: JER 10:37
PROC: 3E033GC Introduction of Other Therapeutic Substance into Peripheral Vein, Percutaneous Approach (ICD-10-PCS; principal; 2022-11-11)
PROC: 3E033GC Introduction of Other Therapeutic Substance into Peripheral Vein, Percutaneous Approach (ICD-10-PCS; 2022-11-11)
PROC: 3E033GC Introduction of Other Therapeutic Substance into Peripheral Vein, Percutaneous Approach (ICD-10-PCS; 2022-11-11)
DX: R10.13 Epigastric pain (principal); K21.9 Gastro-esophageal reflux disease without esophagitis; Z20.822 Contact with and (suspected) exposure to COVID-19
CPT/HCPCS: 0241U-QW; 36415; 74177-TC; 80053; 81003; 83605; 83690; 83735; 84484; 85025; 85610; 85730; 93005; 93010; 96365; 96375; 99285-25; Q9967

== ENCOUNTER 2023-09-18 14:03 | Emergency (ER) | payer OTHER ==
[2023-09-18 14:09] VITALS: BP 145/78; PULSE 76; RESP 16; TEMP 98.2; BMI 33.9
== END 2023-09-18 19:33 | disposition home or self-care (01) ==
LOC: JER 14:03
DX: M79.89 Other specified soft tissue disorders (principal); M79.662 Pain in left lower leg
CPT/HCPCS: 93971-TC; 99284-25

== ENCOUNTER 2024-03-30 00:25 | Emergency (ER) | payer OTHER ==
[2024-03-30 00:43] VITALS: BMI 34.3
[2024-03-30] MEDS ORDERED: ACETAMINOPHEN INJECTION 100 ML ONE (01:47)
[2024-03-30] MEDS ORDERED: FAMOTIDINE 20 MG/50 ML IVPB 20 MG/50 ML MG IVPB ONE (01:48)
[2024-03-30] MEDS ORDERED: ONDANSETRON 4 MG/2 ML VIAL ONE (01:48)
[2024-03-30] MEDS: ACETAMINOPHEN 1000 MG/100 ML BAG IVPB ONE (01:55)
[2024-03-30 01:59] LABS: EOS % 1.9 % (0-4.5); HEMOGLOBIN 11.9 GM/dL (10.7-15.3); LYMPH % 43.7 % (8-40); MCH 30.2 pg (25.7-33.7); MCHC 34.1 g/dl (32.0-36.0); MEAN CELL VOLUME 88.6 fl (80-96); MEAN PLT VOLUME 9.1 fl (7.5-11.1); MONO % 7.6 % (3.8-10.2); NEUT % 45.8 % (42.8-82.8); PLATELET COUNT 233 10^3/uL (134-434); RBC 3.95 M/mm3 (3.60-5.2); WHITE BLOOD COUNT 6.8 K/mm3 (4.0-10.0)
[2024-03-30] MEDS: FAMOTIDINE 20 MG/50 ML IVPB 20 MG/50 ML MG IVPB ONE (01:59)
[2024-03-30] MEDS: ONDANSETRON 4 MG/2 ML VIAL IVPUSH ONE (01:59)
[2024-03-30] MEDS: diazePAM 5 MG TABLET PO ONE (03:18)
[2024-03-30] MEDS ORDERED: diazePAM 5 MG TABLET ONE (03:30)
[2024-03-30 04:06] LABS: POTASSIUM 3.9 mmol/L (3.5-5.1)
[2024-03-30 04:07] LABS: CALCIUM 9.1 mg/dL (8.5-10.1)
[2024-03-30 04:08] LABS: ALBUMIN 3.5 g/dl (3.4-5.0); BLOOD UREA NITROGEN 13.3 mg/dL (7-18); MAGNESIUM 2.1 mg/dL (1.8-2.4)
[2024-03-30 04:11] LABS: CREATININE 0.6 mg/dL (0.55-1.3)
[2024-03-30 04:13] LABS: BILIRUBIN,TOTAL 0.4 mg/dL (0.2-1); TOT PROT 6.9 g/dl (6.4-8.2)
[2024-03-30 07:00] VITALS: BP 100/60; PULSE 88; RESP 18; TEMP 98.6
== END 2024-03-30 07:00 | disposition home or self-care (01) ==
LOC: JER 00:25
PROC: 3E033GC Introduction of Other Therapeutic Substance into Peripheral Vein, Percutaneous Approach (ICD-10-PCS; principal; 2024-03-30)
PROC: 3E033NZ Introduction of Analgesics, Hypnotics, Sedatives into Peripheral Vein, Percutaneous Approach (ICD-10-PCS; 2024-03-30)
PROC: 3E033GC Introduction of Other Therapeutic Substance into Peripheral Vein, Percutaneous Approach (ICD-10-PCS; 2024-03-30)
DX: K29.70 Gastritis, unspecified, without bleeding (principal); R07.89 Other chest pain; R11.0 Nausea; I10 Essential (primary) hypertension; M25.511 Pain in right shoulder; M25.512 Pain in left shoulder
CPT/HCPCS: 36415; 71045-TC-FY; 80053; 83690; 83735; 84484; 85025; 93005; 93010; 96365; 96375; 99285-25; J0131